=== PATIENT | male | born 1955 | race Caucasian/White ===

== ENCOUNTER 2020-08-01 11:33 | Inpatient (IN) | payer BC, SELFPAY ==
[2020-08-01] MEDS ORDERED: Acetaminophen 325 MG TAB PO PRN (14:12)
[2020-08-01] MEDS ORDERED: Dextrose 50% Abboject 50 ML SYRINGE SLOW IVP PRN (14:12)
[2020-08-01] MEDS ORDERED: Ondansetron PF 4 MG/2 ML Vial IVP PRN (14:12)
[2020-08-01] MEDS ORDERED: Dextrose 5% in Water 1,000 ML IV PRN (14:12)
[2020-08-01] MEDS ORDERED: Ondansetron ODT 4 MG TAB PO PRN (14:12)
[2020-08-01] MEDS ORDERED: HumaLOG 300 UNITS/3 ML VIAL SC PRN ×2 (14:16)
[2020-08-01 14:55] LABS: #Basophils 0.1 thou/uL (0.0-0.2); #Eosinphils 0.3 thou/uL (0.0-0.7); #Monocytes 0.9 thou/uL (0.11-0.59); #Neutrophils 4.4 thou/uL (1.40-6.50); %Eosinophils 4.8 % (0.0-10.0); %Lymphocytes 14.9 % (21.0-51.0); %Monocytes 13.8 % (0.0-10.0); %Neutrophils 65.6 % (42.0-75.0); Hemoglobin 9.1 g/dL (14.0-18.0); Mean Corpuscular HGB CONC 31.3 g/dL (32.0-36.0); Mean Corpuscular Hemoglobin 26.6 pg (27.0-31.0); Mean Platelet Volume 7.3 fL (7.4-10.4); Platelet Count 258 thou/uL (130-400); Red Blood Cell (RBC) Count 3.41 mill/uL (4.70-6.10); White Blood Cell (WBC) Count 6.7 thou/uL (4.8-10.8)
[2020-08-01 15:19] LABS: Magnesium 3.6 mg/dL (1.6-2.6); Phosphorus 6.2 mg/dL (2.3-4.7)
[2020-08-01 15:20] VITALS: BMI 39.8
[2020-08-01] MEDS ORDERED: Epoetin (ESRD) 20,000 UNITS/ML SC SCH (15:45)
[2020-08-01] MEDS ORDERED: EPOETIN ALFA-EPBX (ESRD) 4,000 UNIT/ML VIAL SC SCH (16:00)
[2020-08-01 16:07] LABS: ALT (SGPT) 15 U/L (8-55); AST (SGOT) 17 U/L (5-34); Albumin 3.2 g/dL (3.4-4.8); Alkaline Phosphatase 111 U/L (40-110); Anion Gap 19 mmol/L (10-20); BUN (Urea Nitrogen) 103 mg/dL (8.4-25.7); Bilirubin, Total 0.4 mg/dL (0.2-1.2); Calc. Creatinine Clearance 33 mL/min (70-130); Calcium 8.8 mg/dL (7.8-10.44); Carbon Dioxide 18 mmol/L (23-31); Chloride 106 mmol/L (98-107); Globulin 3.9 g/dL (2.4-3.5); Glucose 89 mg/dL (80-115); Protein, Total 7.1 g/dL (5.8-8.1); Sodium 138 mmol/L (136-145)
[2020-08-01] MEDS: hydrALAZINE 25 MG TAB PO SCH ×2 (16:38→20:40)
[2020-08-01] MEDS: Ferrous Sulfate 325 MG TAB PO SCH (16:39)
[2020-08-01] MEDS: Albumin 25% 25 GM/100 ML BOT IVPB SCH ×2 (16:39→21:01)
[2020-08-01] MEDS: Calcium Carbonate 500 MG ChewTAB PO SCH (16:39)
[2020-08-01] MEDS: Carvedilol 6.25 MG TAB PO SCH (20:40)
[2020-08-01] MEDS: Lantus 1000 UNITS/10 ML VIAL SC SCH (21:23)
[2020-08-02 04:55] LABS: SARS-CoV-2 PCR by NAA Not Detected (NotDetected)
[2020-08-02] MEDS: Albumin 25% 25 GM/100 ML BOT IVPB SCH ×2 (04:57→10:00)
[2020-08-02] MEDS: Levothyroxine 150 MCG TAB PO SCH (05:01)
[2020-08-02 06:08] LABS: #Eosinphils 0.2 thou/uL (0.0-0.7); #Lymphocytes 0.9 thou/uL (1.20-3.40); #Monocytes 0.9 thou/uL (0.11-0.59); #Neutrophils 3.8 thou/uL (1.40-6.50); %Basophils 0.4 % (0.0-1.0); %Eosinophils 3.1 % (0.0-10.0); %Lymphocytes 16.4 % (21.0-51.0); %Monocytes 14.8 % (0.0-10.0); %Neutrophils 65.3 % (42.0-75.0); Hemoglobin 7.9 g/dL (14.0-18.0); Mean Corpuscular HGB CONC 30.9 g/dL (32.0-36.0); Mean Corpuscular Hemoglobin 26.1 pg (27.0-31.0); Mean Corpuscular Volume 84.5 fL (78.0-98.0); Mean Platelet Volume 7.1 fL (7.4-10.4); Platelet Count 235 thou/uL (130-400); RBC Distribution Width 16.8 % (11.5-14.5); Red Blood Cell (RBC) Count 3.02 mill/uL (4.70-6.10); White Blood Cell (WBC) Count 5.8 thou/uL (4.8-10.8)
[2020-08-02 06:29] LABS: Anion Gap 14 mmol/L (10-20); BUN (Urea Nitrogen) 101 mg/dL (8.4-25.7); Calc. Creatinine Clearance 34 mL/min (70-130); Calcium 8.7 mg/dL (7.8-10.44); Carbon Dioxide 24 mmol/L (23-31); Chloride 106 mmol/L (98-107); Glucose 80 mg/dL (80-115); Potassium 4.8 mmol/L (3.5-5.1); Sodium 139 mmol/L (136-145)
[2020-08-02 07:01] LABS: Magnesium 3.6 mg/dL (1.6-2.6); Phosphorus 5.9 mg/dL (2.3-4.7)
[2020-08-02] MEDS: Calcium Carbonate 500 MG ChewTAB PO SCH ×3 (09:57→18:21)
[2020-08-02] MEDS: Aspirin 81 mg Enteric Coated Tablet PO SCH (09:58)
[2020-08-02] MEDS: Cholecalciferol 1,000 UNITS (25 MCG) TAB PO SCH ×2 (09:58→20:04)
[2020-08-02] MEDS: Carvedilol 6.25 MG TAB PO SCH ×2 (09:58→20:09)
[2020-08-02] MEDS: hydrALAZINE 25 MG TAB PO SCH ×3 (09:58→20:09)
[2020-08-02] MEDS: Ferrous Sulfate 325 MG TAB PO SCH ×3 (09:58→18:21)
[2020-08-02] MEDS: Heparin 5,000 UNITS/ML VIAL SC SCH ×3 (09:59→20:04)
[2020-08-02] MEDS: Sodium Chloride 0.9% 1,000 ML IV SCH ×3 (09:59→21:29)
[2020-08-02] MEDS: Lantus 1000 UNITS/10 ML VIAL SC SCH (10:00)
[2020-08-02] MEDS: Sevelamer Carbonate 800 MG TAB PO SCH ×2 (13:05→18:20)
[2020-08-02] MEDS ORDERED: Lantus 1000 UNITS/10 ML VIAL SC SCH (21:00)
[2020-08-03] MEDS: Levothyroxine 150 MCG TAB PO SCH (05:54)
[2020-08-03 06:18] LABS: Phosphorus 5.6 mg/dL (2.3-4.7)
[2020-08-03 06:19] LABS: Anion Gap 14 mmol/L (10-20); BUN (Urea Nitrogen) 99 mg/dL (8.4-25.7); Calc. Creatinine Clearance 35 mL/min (70-130); Calcium 8.6 mg/dL (7.8-10.44); Carbon Dioxide 24 mmol/L (23-31); Chloride 107 mmol/L (98-107); Magnesium 3.6 mg/dL (1.6-2.6); Potassium 4.6 mmol/L (3.5-5.1); Sodium 140 mmol/L (136-145)
[2020-08-03 06:21] LABS: Glucose 36 mg/dL (80-115)
[2020-08-03 06:23] LABS: Eosinophils 4 % (0-10); Hemoglobin 8.6 g/dL (14.0-18.0); Lymphocytes 12 % (21-51); MDiff Complete? YES; Mean Corpuscular HGB CONC 30.4 g/dL (32.0-36.0); Mean Corpuscular Hemoglobin 25.9 pg (27.0-31.0); Mean Corpuscular Volume 85.3 fL (78.0-98.0); Mean Platelet Volume 7.5 fL (7.4-10.4); Monocytes 15 % (0-10); Neutrophil 69 % (42-75); Platelet Count 261 thou/uL (130-400); RBC Distribution Width 17.2 % (11.5-14.5); Red Blood Cell (RBC) Count 3.31 mill/uL (4.70-6.10); White Blood Cell (WBC) Count 6.8 thou/uL (4.8-10.8)
[2020-08-03] MEDS ORDERED: Lantus 1000 UNITS/10 ML VIAL SC SCH ×2 (09:00→10:00)
[2020-08-03] MEDS: Carvedilol 6.25 MG TAB PO SCH ×2 (09:10→20:10)
[2020-08-03] MEDS: hydrALAZINE 25 MG TAB PO SCH ×3 (09:11→20:10)
[2020-08-03] MEDS: Ferrous Sulfate 325 MG TAB PO SCH ×3 (09:11→18:40)
[2020-08-03] MEDS: Aspirin 81 mg Enteric Coated Tablet PO SCH (09:11)
[2020-08-03] MEDS: Cholecalciferol 1,000 UNITS (25 MCG) TAB PO SCH ×2 (09:11→20:11)
[2020-08-03] MEDS: Heparin 5,000 UNITS/ML VIAL SC SCH ×3 (09:12→20:09)
[2020-08-03] MEDS: Sevelamer Carbonate 800 MG TAB PO SCH ×3 (09:13→18:40)
[2020-08-03] MEDS: Calcium Carbonate 500 MG ChewTAB PO SCH ×3 (09:16→18:40)
[2020-08-03] MEDS: Albumin 25% 25 GM/100 ML BOT IVPB SCH ×3 (10:13→20:11)
[2020-08-03] MEDS: Sodium Chloride 0.9% 1,000 ML IV SCH (15:48)
[2020-08-03] MEDS: Lantus 1000 UNITS/10 ML VIAL SC SCH (20:10)
[2020-08-04] MEDS: Albumin 25% 25 GM/100 ML BOT IVPB SCH (03:59)
[2020-08-04] MEDS: Sodium Chloride 0.9% 1,000 ML IV SCH ×3 (04:15→18:09)
[2020-08-04] MEDS ORDERED: Polyethylene Glycol 3350 17 GM Packet PO SCH (04:45)
[2020-08-04] MEDS: Levothyroxine 150 MCG TAB PO SCH (05:20)
[2020-08-04 06:43] LABS: Phosphorus 5.5 mg/dL (2.3-4.7)
[2020-08-04 06:45] LABS: Anion Gap 13 mmol/L (10-20); BUN (Urea Nitrogen) 96 mg/dL (8.4-25.7); Calc. Creatinine Clearance 36 mL/min (70-130); Calcium 8.1 mg/dL (7.8-10.44); Carbon Dioxide 24 mmol/L (23-31); Chloride 108 mmol/L (98-107); Glucose 78 mg/dL (80-115); Magnesium 3.5 mg/dL (1.6-2.6); Potassium 4.7 mmol/L (3.5-5.1); Sodium 140 mmol/L (136-145)
[2020-08-04 06:58] LABS: Band 1 % (5-11); Eosinophils 5 % (0-10); Hemoglobin 7.9 g/dL (14.0-18.0); Lymphocytes 12 % (21-51); MDiff Complete? YES; Mean Corpuscular HGB CONC 30.6 g/dL (32.0-36.0); Mean Corpuscular Hemoglobin 26.3 pg (27.0-31.0); Mean Corpuscular Volume 85.8 fL (78.0-98.0); Mean Platelet Volume 7.3 fL (7.4-10.4); Metamyelocyte 1 % (0-0); Monocytes 14 % (0-10); Neutrophil 67 % (42-75); Platelet Count 213 thou/uL (130-400); Platelet Morphology Comment Appears Adequate; White Blood Cell (WBC) Count 5.5 thou/uL (4.8-10.8)
[2020-08-04] MEDS: Heparin 5,000 UNITS/ML VIAL SC SCH ×3 (08:44→19:56)
[2020-08-04] MEDS: Lantus 1000 UNITS/10 ML VIAL SC SCH ×2 (08:47→21:00)
[2020-08-04] MEDS: hydrALAZINE 25 MG TAB PO SCH ×3 (08:48→19:56)
[2020-08-04] MEDS: Ferrous Sulfate 325 MG TAB PO SCH ×3 (08:48→16:56)
[2020-08-04] MEDS: Calcium Carbonate 500 MG ChewTAB PO SCH ×3 (08:48→16:56)
[2020-08-04] MEDS: Cholecalciferol 1,000 UNITS (25 MCG) TAB PO SCH ×2 (08:49→19:57)
[2020-08-04] MEDS: Aspirin 81 mg Enteric Coated Tablet PO SCH (08:52)
[2020-08-04] MEDS: Sevelamer Carbonate 800 MG TAB PO SCH ×3 (08:52→16:56)
[2020-08-04] MEDS: Carvedilol 25 MG TAB PO SCH ×2 (08:52→16:56)
[2020-08-05 04:57] LABS: Phosphorus 5.5 mg/dL (2.3-4.7)
[2020-08-05 04:59] LABS: Anion Gap 13 mmol/L (10-20); BUN (Urea Nitrogen) 98 mg/dL (8.4-25.7); Calc. Creatinine Clearance 37 mL/min (70-130); Calcium 7.8 mg/dL (7.8-10.44); Carbon Dioxide 21 mmol/L (23-31); Chloride 107 mmol/L (98-107); Glucose 117 mg/dL (80-115); Magnesium 3.4 mg/dL (1.6-2.6); Potassium 4.9 mmol/L (3.5-5.1); Sodium 136 mmol/L (136-145)
[2020-08-05 05:08] LABS: Band 2 % (5-11); Eosinophils 12 % (0-10); Hemoglobin 8.3 g/dL (14.0-18.0); Lymphocytes 21 % (21-51); MDiff Complete? YES; Mean Corpuscular HGB CONC 30.1 g/dL (32.0-36.0); Mean Corpuscular Hemoglobin 25.9 pg (27.0-31.0); Mean Corpuscular Volume 86.2 fL (78.0-98.0); Mean Platelet Volume 7.9 fL (7.4-10.4); Monocytes 11 % (0-10); Neutrophil 54 % (42-75); Platelet Count 225 thou/uL (130-400); Platelet Morphology Comment Appears Adequate; RBC Distribution Width 17.3 % (11.5-14.5); Red Blood Cell (RBC) Count 3.21 mill/uL (4.70-6.10); White Blood Cell (WBC) Count 5.8 thou/uL (4.8-10.8)
[2020-08-05] MEDS: Levothyroxine 150 MCG TAB PO SCH (05:57)
[2020-08-05 08:15] VITALS: BP 169/83; TEMP 98
[2020-08-05] MEDS: Calcium Carbonate 500 MG ChewTAB PO SCH (08:44)
[2020-08-05] MEDS: Carvedilol 25 MG TAB PO SCH (08:44)
[2020-08-05] MEDS: Ferrous Sulfate 325 MG TAB PO SCH (08:44)
[2020-08-05] MEDS: Lantus 1000 UNITS/10 ML VIAL SC SCH (08:45)
[2020-08-05] MEDS: Sevelamer Carbonate 800 MG TAB PO SCH (08:45)
[2020-08-05] MEDS: hydrALAZINE 25 MG TAB PO SCH (08:45)
[2020-08-05] MEDS: Cholecalciferol 1,000 UNITS (25 MCG) TAB PO SCH (08:45)
[2020-08-05] MEDS: Aspirin 81 mg Enteric Coated Tablet PO SCH (08:45)
[2020-08-05] MEDS: Heparin 5,000 UNITS/ML VIAL SC SCH (08:45)
[2020-08-08] MEDS ORDERED: cloNIDine 0.3mg/24 Hour PATCH TD SCH (09:00)
[2020-08-08] MEDS ORDERED: EPOETIN ALFA-EPBX (ESRD) 4,000 UNIT/ML VIAL SC SCH (09:00)
== END 2020-08-05 11:57 | disposition home or self-care (01) | DRG 683 ==
LOC: ONC 12:58
PROVIDERS: ADMIT Family Medicine; ATTEND Family Medicine
DX: N17.9 Acute kidney failure, unspecified (principal); Z68.41 Body mass index [BMI] 40.0-44.9, adult; L97.919 Non-pressure chronic ulcer of unspecified part of right lower leg with unspecified severity; L97.929 Non-pressure chronic ulcer of unspecified part of left lower leg with unspecified severity; E03.9 Hypothyroidism, unspecified; F17.210 Nicotine dependence, cigarettes, uncomplicated; E11.22 Type 2 diabetes mellitus with diabetic chronic kidney disease; I12.9 Hypertensive chronic kidney disease with stage 1 through stage 4 chronic kidney disease, or unspecified chronic kidney disease; E83.39 Other disorders of phosphorus metabolism; E83.41 Hypermagnesemia; D64.9 Anemia, unspecified; E11.649 Type 2 diabetes mellitus with hypoglycemia without coma; N18.2 Chronic kidney disease, stage 2 (mild); I87.2 Venous insufficiency (chronic) (peripheral); E66.01 Morbid (severe) obesity due to excess calories; I83.009 Varicose veins of unspecified lower extremity with ulcer of unspecified site; Z79.82 Long term (current) use of aspirin; Z88.8 Allergy status to other drugs, medicaments and biological substances; Z89.421 Acquired absence of other right toe(s); Z98.41 Cataract extraction status, right eye; Z82.3 Family history of stroke; Z83.3 Family history of diabetes mellitus; Z82.49 Family history of ischemic heart disease and other diseases of the circulatory system
CPT/HCPCS: 36415; 36416; 80048; 80053; 83735; 84100; 84443; 85025; 87635; J1644; J1815; P9047; Q5105; U0003; U0005

== ENCOUNTER 2020-11-29 17:04 | Inpatient (IN) | payer MEDICARE, OTHER ==
[2020-11-29 18:07] LABS: Hemoglobin 12.3 g/dL (14.0-18.0); Mean Corpuscular HGB CONC 30.3 g/dL (32.0-36.0); Mean Corpuscular Volume 86.1 fL (78.0-98.0); Platelet Count 411 thou/uL (130-400); RBC Distribution Width 18.3 % (11.5-14.5); Red Blood Cell (RBC) Count 4.73 mill/uL (4.70-6.10)
[2020-11-29] MEDS ORDERED: Calcium Gluc 4.6 MEQ/10 ML (100 MG/ML) ONE ×2 (18:15→18:34)
[2020-11-29 18:22] LABS: Anisocytosis SLIGHT = 6-15 cells (100X) (0-5/hpf); Band 6 % (5-11); Lymphocytes 2 % (21-51); MDiff Complete? YES; Monocytes 9 % (0-10); Neutrophil 83 % (42-75); Nucleated RBC 3 % (0); Ovalocytes SLIGHT = 2-5 cells (100X) (0-1/hpf); Platelet Morphology Comment Appears Increased; Polychromasia SLIGHT = 2-3 cells (100X) (0-2/hpf); White Blood Cell (WBC) Count 18.9 thou/uL (4.8-10.8)
[2020-11-29 18:29] LABS: ALT (SGPT) 19 U/L (8-55); AST (SGOT) 12 U/L (5-34); Alkaline Phosphatase 140 U/L (40-110); Bilirubin, Total 0.5 mg/dL (0.2-1.2); Calc. Creatinine Clearance 0 mL/min (70-130); Calcium 7.9 mg/dL (7.8-10.44); Chloride 111 mmol/L (98-107); Globulin 3.4 g/dL (2.4-3.5); Glucose 131 mg/dL (80-115); Lipase 69 U/L (8-78); Magnesium 4.5 mg/dL (1.6-2.6); Protein, Total 6.4 g/dL (5.8-8.1); Sodium 136 mmol/L (136-145)
[2020-11-29 18:32] LABS: Carbon Dioxide Less than 8 mmol/L (23-31); Potassium 8.7 mmol/L (3.5-5.1)
[2020-11-29] MEDS ORDERED: Albuterol Sulfate 2.5 mg/3 ml Neb ONE ×3 (18:32→19:11)
[2020-11-29] MEDS ORDERED: Insulin Regular 300 UNITS/3 ML VIAL ONE (18:34)
[2020-11-29] MEDS ORDERED: Dextrose 50% Abboject 50 ML SYRINGE ONE ×2 (18:34→18:35)
[2020-11-29 18:40] LABS: BUN (Urea Nitrogen) 170 mg/dL (8.4-25.7)
[2020-11-29] MEDS ORDERED: Sodium Bicarb 50 MEQ/50 ML Abboject 8.4% SYRINGE ONE ×2 (18:55→19:40)
[2020-11-29] MEDS ORDERED: LOKELMA 10 GM PACKET PO SCH (19:15)
[2020-11-29] MEDS ORDERED: Furosemide 20 MG/2 ML VIAL ONE (19:18)
[2020-11-29] MEDS ORDERED: Furosemide 100 MG/10 ML VIAL ONE (19:18)
[2020-11-29] MEDS ORDERED: Midazolam HCl 2 mg/2 ml Vial ONE (19:19)
[2020-11-29] MEDS ORDERED: Acetaminophen 325 MG TAB PO PRN (19:42)
[2020-11-29] MEDS ORDERED: Ondansetron PF 4 MG/2 ML Vial IVP PRN (19:42)
[2020-11-29] MEDS ORDERED: Dextrose 50% Abboject 50 ML SYRINGE SLOW IVP PRN (19:45)
[2020-11-29] MEDS ORDERED: Dextrose 5% in Water 1,000 ML IV PRN (19:45)
[2020-11-29] MEDS: Heparin 5,000 UNITS/ML VIAL SC SCH (21:50)
[2020-11-29 23:35] LABS: SARS-CoV-2 NAA Rapid Test Not Detected (NotDetected)
[2020-11-29] MEDS ORDERED: VANCOMYCIN 1.25 GM/250 ML BAG 1.25 GM in Premix Bag 1 BAG IVPB SCH (23:45)
[2020-11-29] MEDS ORDERED: HOLD VANCOMYCIN FOR LEVEL >20 FS SCH (23:45)
[2020-11-29] MEDS ORDERED: Vancomycin HCl 500 MG in Sodium Chloride 0.9% 100 ML IVPB SCH (23:45)
[2020-11-29] MEDS ORDERED: Vancomycin HCl 750 MG in Sodium Chloride 0.9% 250 ML 250 ML IVPB SCH (23:45)
[2020-11-29] MEDS ORDERED: Cefepime 1 GM in Sodium Chloride 0.9% 100 ML IVPB SCH (23:45)
[2020-11-29] MEDS ORDERED: Vancomycin Sliding Scale 1 EACH FS ONE (23:45)
[2020-11-29] MEDS ORDERED: Vancomycin 1 GM in Premix Bag 1 BAG IVPB SCH (23:45)
[2020-11-29] MEDS ORDERED: VANCOMYCIN 1.75 GM/350 ML BAG 1.75 GM in Premix Bag 1 BAG IVPB SCH (23:59)
[2020-11-30] MEDS ORDERED: Cefepime 1 GM VIAL ONE (00:06)
[2020-11-30 00:54] LABS: HBSAg Index 0.16 S/CO (0-0.99); Hep B Surf Ag Non-Reactive S/CO (NonReactive)
[2020-11-30 01:26] LABS: Anion Gap 26 mmol/L (10-20); BUN (Urea Nitrogen) 123 mg/dL (8.4-25.7); Calc. Creatinine Clearance 7 mL/min (70-130); Calcium 8.2 mg/dL (7.8-10.44); Carbon Dioxide 12 mmol/L (23-31); Chloride 106 mmol/L (98-107); Glucose 87 mg/dL (80-115); Potassium 5.8 mmol/L (3.5-5.1); Sodium 138 mmol/L (136-145)
[2020-11-30] MEDS ORDERED: Dextrose 50% Abboject 50 ML SYRINGE SLOW IVP PRN (02:08)
[2020-11-30] MEDS ORDERED: Calcium Gluc 4.6 MEQ/10 ML (100 MG/ML) SLOW IVP SCH (02:08)
[2020-11-30] MEDS ORDERED: Insulin Regular 300 UNITS/3 ML VIAL IVP SCH (02:15)
[2020-11-30] MEDS ORDERED: Insulin Regular 300 UNITS/3 ML VIAL ONE (02:25)
[2020-11-30] MEDS ORDERED: Dextrose 50% Abboject 50 ML SYRINGE ONE (02:25)
[2020-11-30] MEDS ORDERED: Calcium Gluc 4.6 MEQ/10 ML (100 MG/ML) ONE (02:25)
[2020-11-30 04:37] LABS: Anion Gap 24 mmol/L (10-20); BUN (Urea Nitrogen) 124 mg/dL (8.4-25.7); Calc. Creatinine Clearance 6 mL/min (70-130); Calcium 8.3 mg/dL (7.8-10.44); Carbon Dioxide 13 mmol/L (23-31); Chloride 106 mmol/L (98-107); Glucose 144 mg/dL (80-115); Magnesium 3.7 mg/dL (1.6-2.6); Potassium 6.2 mmol/L (3.5-5.1); Sodium 137 mmol/L (136-145)
[2020-11-30 04:55] LABS: Anisocytosis SLIGHT = 6-15 cells (100X) (0-5/hpf); Band 4 % (5-11); Lymphocytes 5 % (21-51); MDiff Complete? YES; Mean Corpuscular HGB CONC 32.6 g/dL (32.0-36.0); Mean Corpuscular Hemoglobin 27.6 pg (27.0-31.0); Mean Corpuscular Volume 84.8 fL (78.0-98.0); Mean Platelet Volume 7.4 fL (7.4-10.4); Monocytes 8 % (0-10); Neutrophil 81 % (42-75); Nucleated RBC 2 % (0); Ovalocytes SLIGHT = 2-5 cells (100X) (0-1/hpf); Platelet Count 339 thou/uL (130-400); Platelet Morphology Comment Appears Adequate; Polychromasia SLIGHT = 2-3 cells (100X) (0-2/hpf); RBC Distribution Width 17.8 % (11.5-14.5); Reactive Lymphocytes 2 % (0-10); Red Blood Cell (RBC) Count 4.33 mill/uL (4.70-6.10); Schistocytes SLIGHT = 2-5 cells (100X) (0-1/hpf)
[2020-11-30] MEDS ORDERED: Tuberculin PPD 0.1 ML VIAL I-DERMAL SCH (07:45)
[2020-11-30] MEDS: Heparin 5,000 UNITS/ML VIAL SC SCH ×2 (08:10→21:40)
[2020-11-30 09:34] LABS: Anion Gap 21 mmol/L (10-20); BUN (Urea Nitrogen) 107 mg/dL (8.4-25.7); Calc. Creatinine Clearance 7 mL/min (70-130); Calcium 8.1 mg/dL (7.8-10.44); Carbon Dioxide 17 mmol/L (23-31); Chloride 106 mmol/L (98-107); Glucose 183 mg/dL (80-115); Potassium 6.1 mmol/L (3.5-5.1); Sodium 138 mmol/L (136-145); Vancomycin, Random 20.4 ug/mL (See Comment)
[2020-11-30 09:53] LABS: HBSAB Concentration Less than 8.00 mIU/mL; HBSAg Index 0.21 S/CO (0-0.99); Hep B Core Total Ab Non-Reactive (NonReactive); Hep B Core Total Index 0.08 S/CO (0-0.79); Hep B Surf AB Non-Reactive (NonReactive); Hep B Surf Ag Non-Reactive S/CO (NonReactive); Hep C IgG Ab Non-Reactive (NonReactive); Hep C Index 0.06 S/CO (0-0.79)
[2020-11-30] MEDS: Famotidine 20 MG TAB PO SCH (10:03)
[2020-11-30 10:04] LABS: Band 10 % (5-11); Hemoglobin 11.4 g/dL (14.0-18.0); Lymphocytes 8 % (21-51); MDiff Complete? YES; Mean Corpuscular HGB CONC 31.2 g/dL (32.0-36.0); Mean Corpuscular Hemoglobin 26.6 pg (27.0-31.0); Mean Corpuscular Volume 85.1 fL (78.0-98.0); Mean Platelet Volume 6.9 fL (7.4-10.4); Monocytes 7 % (0-10); Neutrophil 75 % (42-75); Nucleated RBC 2 % (0); Ovalocytes SLIGHT = 2-5 cells (100X) (0-1/hpf); Platelet Count 376 thou/uL (130-400); Platelet Morphology Comment Appears Adequate; Polychromasia MODERATE = 3-4 cells (100X) (0-2/hpf); RBC Distribution Width 18.1 % (11.5-14.5); Red Blood Cell (RBC) Count 4.29 mill/uL (4.70-6.10); White Blood Cell (WBC) Count 17.2 thou/uL (4.8-10.8)
[2020-11-30] MEDS ORDERED: hydrALAZINE 20 MG/ML VIAL SLOW IVP PRN (16:18)
[2020-11-30] MEDS: Sevelamer Carbonate 800 MG TAB PO SCH (16:52)
[2020-11-30] MEDS: Ferrous Sulfate 325 MG TAB PO SCH (16:52)
[2020-11-30 17:53] LABS: Anion Gap 21 mmol/L (10-20); BUN (Urea Nitrogen) 79 mg/dL (8.4-25.7); Calc. Creatinine Clearance 8 mL/min (70-130); Carbon Dioxide 20 mmol/L (23-31); Chloride 105 mmol/L (98-107); Glucose 121 mg/dL (80-115); Potassium 5.4 mmol/L (3.5-5.1); Sodium 141 mmol/L (136-145)
[2020-11-30] MEDS: Cefepime 0.5 GM, Admixture Fee 1 EACH in Sodium Chloride 0.9% 100 ML IVPB SCH (21:36)
[2020-11-30] MEDS ORDERED: Cefepime 1 GM in Sodium Chloride 0.9% 100 ML IVPB SCH (21:45)
[2020-12-01 05:21] LABS: Hemoglobin 10.7 g/dL (14.0-18.0); Mean Corpuscular HGB CONC 30.8 g/dL (32.0-36.0); Mean Corpuscular Hemoglobin 26.6 pg (27.0-31.0); Mean Corpuscular Volume 86.2 fL (78.0-98.0); Mean Platelet Volume 7.5 fL (7.4-10.4); Platelet Count 309 thou/uL (130-400); RBC Distribution Width 17.7 % (11.5-14.5); Red Blood Cell (RBC) Count 4.01 mill/uL (4.70-6.10); White Blood Cell (WBC) Count 11.6 thou/uL (4.8-10.8)
[2020-12-01 05:38] LABS: Anion Gap 22 mmol/L (10-20); BUN (Urea Nitrogen) 89 mg/dL (8.4-25.7); Calc. Creatinine Clearance 8 mL/min (70-130); Calcium 7.9 mg/dL (7.8-10.44); Carbon Dioxide 17 mmol/L (23-31); Chloride 105 mmol/L (98-107); Glucose 105 mg/dL (80-115); Magnesium 3.3 mg/dL (1.6-2.6); Potassium 5.9 mmol/L (3.5-5.1); Sodium 138 mmol/L (136-145)
[2020-12-01 06:28] LABS: Band 13 % (5-11); Lymphocytes 9 % (21-51); MDiff Complete? YES; Monocytes 7 % (0-10); Neutrophil 71 % (42-75)
[2020-12-01] MEDS: Heparin 5,000 UNITS/ML VIAL SC SCH ×4 (07:26→21:58)
[2020-12-01] MEDS: Ferrous Sulfate 325 MG TAB PO SCH ×3 (07:27→17:23)
[2020-12-01] MEDS: Aspirin 81 mg Enteric Coated Tablet PO SCH (07:27)
[2020-12-01] MEDS: Famotidine 20 MG TAB PO SCH (07:27)
[2020-12-01] MEDS: Levothyroxine 150 MCG TAB PO SCH (07:28)
[2020-12-01] MEDS ORDERED: CEFAZOLIN 2 GM in Premix Bag 1 BAG IVPB SCH (07:45)
[2020-12-01 08:07] LABS: Vancomycin, Random 15.8 ug/mL (See Comment)
[2020-12-01] MEDS ORDERED: Heparin 10,000 UNITS/ 10 ML VIAL ONE (09:18)
[2020-12-01] MEDS: Sevelamer Carbonate 800 MG TAB PO SCH ×3 (09:52→17:23)
[2020-12-01] MEDS: HumaLOG 300 UNITS/3 ML VIAL SC PRN (17:06)
[2020-12-01] MEDS: Cefepime 0.5 GM, Admixture Fee 1 EACH in Sodium Chloride 0.9% 100 ML IVPB SCH (17:21)
[2020-12-01] MEDS ORDERED: Amiodarone 150 MG in Dextrose 5% in Water 100 ML IVPB SCH (20:00)
[2020-12-01 21:49] LABS: ALT (SGPT) 14 U/L (8-55); AST (SGOT) 12 U/L (5-34); Albumin 2.3 g/dL (3.4-4.8); Alkaline Phosphatase 111 U/L (40-110); Bilirubin, Direct 0.2 mg/dL (0.1-0.3); Bilirubin, Total 0.4 mg/dL (0.2-1.2); Protein, Total 5.7 g/dL (5.8-8.1)
[2020-12-01] MEDS: Carvedilol 6.25 MG TAB PO SCH (21:59)
[2020-12-01] MEDS: Amiodarone 450 MG in Dextrose 5% in Water 250 ML IVPB SCH (22:21)
[2020-12-02 04:47] LABS: Mean Corpuscular HGB CONC 31.1 g/dL (32.0-36.0); Mean Corpuscular Hemoglobin 27.2 pg (27.0-31.0); Mean Corpuscular Volume 87.6 fL (78.0-98.0); Mean Platelet Volume 7.5 fL (7.4-10.4); Platelet Count 254 thou/uL (130-400); RBC Distribution Width 17.5 % (11.5-14.5); Red Blood Cell (RBC) Count 3.68 mill/uL (4.70-6.10); White Blood Cell (WBC) Count 6.9 thou/uL (4.8-10.8)
[2020-12-02 04:57] LABS: Phosphorus 6.7 mg/dL (2.3-4.7)
[2020-12-02 05:00] LABS: Anion Gap 13 mmol/L (10-20); BUN (Urea Nitrogen) 52 mg/dL (8.4-25.7); Calc. Creatinine Clearance 11 mL/min (70-130); Calcium 7.4 mg/dL (7.8-10.44); Carbon Dioxide 27 mmol/L (23-31); Chloride 100 mmol/L (98-107); Glucose 192 mg/dL (80-115); Magnesium 2.5 mg/dL (1.6-2.6); Potassium 4.5 mmol/L (3.5-5.1); Sodium 135 mmol/L (136-145)
[2020-12-02] MEDS: HumaLOG 300 UNITS/3 ML VIAL SC PRN ×4 (06:00→21:43)
[2020-12-02 06:01] LABS: Band 18 % (5-11); Lymphocytes 9 % (21-51); MDiff Complete? YES; Monocytes 14 % (0-10); Neutrophil 57 % (42-75); Platelet Morphology Comment Appears Adequate; Polychromasia SLIGHT = 2-3 cells (100X) (0-2/hpf); Reactive Lymphocytes 2 % (0-10)
[2020-12-02] MEDS: Heparin 5,000 UNITS/ML VIAL SC SCH ×3 (08:24→20:46)
[2020-12-02] MEDS: Famotidine 20 MG TAB PO SCH (08:24)
[2020-12-02] MEDS: Ferrous Sulfate 325 MG TAB PO SCH ×3 (08:24→20:48)
[2020-12-02] MEDS: Aspirin 81 mg Enteric Coated Tablet PO SCH (08:24)
[2020-12-02] MEDS: Carvedilol 6.25 MG TAB PO SCH ×2 (08:24→20:48)
[2020-12-02] MEDS: Sevelamer Carbonate 800 MG TAB PO SCH ×3 (08:24→17:29)
[2020-12-02] MEDS: Levothyroxine 150 MCG TAB PO SCH (08:24)
[2020-12-02] MEDS ORDERED: Heparin 10,000 UNITS/ 10 ML VIAL ONE (09:21)
[2020-12-02] MEDS ORDERED: Carvedilol 6.25 MG TAB PO SCH (12:15)
[2020-12-02] MEDS ORDERED: Ferrous Sulfate 325 MG TAB PO SCH (17:00)
[2020-12-02] MEDS ORDERED: Cefepime 0.5 GM in Sodium Chloride 0.9% 100 ML IVPB SCH (17:00)
[2020-12-02] MEDS: Senokot S 8.6-50 MG TAB PO SCH (20:47)
[2020-12-02] MEDS: Cefepime 0.5 GM in Sodium Chloride 0.9% 100 ML IVPB SCH (21:07)
[2020-12-02] MEDS: Amiodarone 450 MG in Dextrose 5% in Water 250 ML IVPB SCH (21:45)
[2020-12-03 04:24] LABS: Anion Gap 11 mmol/L (10-20); BUN (Urea Nitrogen) 31 mg/dL (8.4-25.7); Calc. Creatinine Clearance 17 mL/min (70-130); Calcium 7.3 mg/dL (7.8-10.44); Carbon Dioxide 29 mmol/L (23-31); Chloride 96 mmol/L (98-107); Glucose 226 mg/dL (80-115); Potassium 3.7 mmol/L (3.5-5.1); Sodium 132 mmol/L (136-145)
[2020-12-03 04:54] LABS: Band 12 % (5-11); Eosinophils 3 % (0-10); Hemoglobin 9.9 g/dL (14.0-18.0); Lymphocytes 2 % (21-51); MDiff Complete? YES; Mean Corpuscular HGB CONC 30.7 g/dL (32.0-36.0); Mean Corpuscular Hemoglobin 27.2 pg (27.0-31.0); Mean Corpuscular Volume 88.5 fL (78.0-98.0); Mean Platelet Volume 7.4 fL (7.4-10.4); Monocytes 12 % (0-10); Neutrophil 71 % (42-75); Platelet Count 228 thou/uL (130-400); RBC Distribution Width 16.9 % (11.5-14.5); Red Blood Cell (RBC) Count 3.65 mill/uL (4.70-6.10); White Blood Cell (WBC) Count 7.9 thou/uL (4.8-10.8)
[2020-12-03] MEDS: HumaLOG 300 UNITS/3 ML VIAL SC PRN ×4 (06:40→16:53)
[2020-12-03] MEDS: Dronedarone HCl 400 MG TAB PO SCH ×2 (08:54→16:51)
[2020-12-03] MEDS: Aspirin 81 mg Enteric Coated Tablet PO SCH (08:55)
[2020-12-03] MEDS: Ferrous Sulfate 325 MG TAB PO SCH ×3 (08:55→20:50)
[2020-12-03] MEDS: Senokot S 8.6-50 MG TAB PO SCH ×2 (08:55→20:50)
[2020-12-03] MEDS: Carvedilol 6.25 MG TAB PO SCH ×2 (08:55→23:20)
[2020-12-03] MEDS: Calcitriol 0.25 MCG CAP PO SCH (08:55)
[2020-12-03] MEDS: Levothyroxine 150 MCG TAB PO SCH (08:55)
[2020-12-03] MEDS: Sevelamer Carbonate 800 MG TAB PO SCH ×3 (08:55→16:52)
[2020-12-03] MEDS: Heparin 5,000 UNITS/ML VIAL SC SCH ×3 (08:56→20:54)
[2020-12-03] MEDS ORDERED: cloNIDine 0.3mg/24 Hour PATCH TD SCH (12:00)
[2020-12-03] MEDS: EPOETIN ALFA-EPBX (ESRD) 4,000 UNIT/ML VIAL SC SCH (13:11)
[2020-12-03] MEDS: Lantus 1000 UNITS/10 ML VIAL SC SCH ×2 (13:12→13:13)
[2020-12-03] MEDS: hydrALAZINE 25 MG TAB PO SCH ×2 (15:21→23:20)
[2020-12-03] MEDS: Cefepime 0.5 GM in Sodium Chloride 0.9% 100 ML IVPB SCH (20:49)
[2020-12-04 04:59] LABS: Hemoglobin 10.2 g/dL (14.0-18.0); Mean Corpuscular HGB CONC 30.9 g/dL (32.0-36.0); Mean Corpuscular Hemoglobin 27.3 pg (27.0-31.0); Mean Corpuscular Volume 88.2 fL (78.0-98.0); Mean Platelet Volume 7.6 fL (7.4-10.4); Platelet Count 244 thou/uL (130-400); Red Blood Cell (RBC) Count 3.73 mill/uL (4.70-6.10); White Blood Cell (WBC) Count 7.6 thou/uL (4.8-10.8)
[2020-12-04 05:06] LABS: Anion Gap 14 mmol/L (10-20); BUN (Urea Nitrogen) 46 mg/dL (8.4-25.7); Calc. Creatinine Clearance 18 mL/min (70-130); Calcium 7.6 mg/dL (7.8-10.44); Carbon Dioxide 25 mmol/L (23-31); Chloride 95 mmol/L (98-107); Glucose 213 mg/dL (80-115); Sodium 130 mmol/L (136-145)
[2020-12-04 05:25] LABS: Band 4 % (5-11); Eosinophils 8 % (0-10); Lymphocytes 10 % (21-51); MDiff Complete? YES; Monocytes 10 % (0-10); Neutrophil 68 % (42-75)
[2020-12-04] MEDS: Lantus 1000 UNITS/10 ML VIAL SC SCH (08:57)
[2020-12-04] MEDS: Aspirin 81 mg Enteric Coated Tablet PO SCH (08:57)
[2020-12-04] MEDS: Sevelamer Carbonate 800 MG TAB PO SCH ×3 (08:57→17:40)
[2020-12-04] MEDS: Levothyroxine 150 MCG TAB PO SCH (09:03)
[2020-12-04] MEDS: Carvedilol 6.25 MG TAB PO SCH ×2 (11:07→20:46)
[2020-12-04] MEDS: hydrALAZINE 25 MG TAB PO SCH ×3 (12:11→20:49)
[2020-12-04] MEDS ORDERED: Heparin 5,000 UNITS/ML VIAL ONE (12:14)
[2020-12-04] MEDS ORDERED: Ioversol 68 % 50 ML VIAL ONE (12:14)
[2020-12-04] MEDS ORDERED: Heparin 10,000 UNITS/ 10 ML VIAL ONE (12:14)
[2020-12-04] MEDS ORDERED: Lidocaine 1% w/Epinephrine 1:100K 20 ML VIAL ONE (12:14)
[2020-12-04] MEDS ORDERED: Protamine Sulfate 50 MG/5 ML VIAL ONE (12:14)
[2020-12-04] MEDS ORDERED: Sodium Chloride 0.9% 20 ML ONE (12:14)
[2020-12-04] MEDS ORDERED: Bupivacaine PF 0.5% 30 ML VIAL ONE (12:14)
[2020-12-04] MEDS ORDERED: Fentanyl 100 MCG/2 ML VIAL ONE (12:26)
[2020-12-04] MEDS ORDERED: Phenylephrine 10 MG/ML VIAL ONE ×2 (12:32)
[2020-12-04] MEDS ORDERED: Albumin 5% 250 ML ONE (12:33)
[2020-12-04] MEDS ORDERED: Rocuronium Bromide 10 MG/ML (10ML VIAL) ONE (12:49)
[2020-12-04] MEDS ORDERED: Glycopyrrolate 0.2 MG/ML 5 ML SYRINGE ONE (12:49)
[2020-12-04] MEDS ORDERED: Lidocaine 1% PF 5 ML VIAL ONE (12:49)
[2020-12-04] MEDS ORDERED: PROPOFOL 200 MG/20 ML VIAL ONE (12:49)
[2020-12-04] MEDS ORDERED: Ondansetron PF 4 MG/2 ML Vial ONE (12:49)
[2020-12-04] MEDS ORDERED: EPINEPHrine 1 MG/10 ML Abboject SYRINGE ONE (12:49)
[2020-12-04] MEDS ORDERED: ePHEDrine 50 MG/ML VIAL ONE (12:49)
[2020-12-04] MEDS ORDERED: traMADol HCl 50 MG TAB PO PRN (13:06)
[2020-12-04] MEDS: Ferrous Sulfate 325 MG TAB PO SCH ×3 (13:38→20:58)
[2020-12-04] MEDS: Dronedarone HCl 400 MG TAB PO SCH (13:38)
[2020-12-04] MEDS ORDERED: Sodium Chloride 0.9% 1,000 ML IV SCH (15:00)
[2020-12-04] MEDS ORDERED: Calcium Chloride 1 GM/10 ML Abboject SYRINGE ONE (15:46)
[2020-12-04] MEDS ORDERED: Amiodarone 450 MG in Dextrose 5% in Water 250 ML IVPB SCH (16:45)
[2020-12-04 17:11] LABS: #Eosinphils 0.3 thou/uL (0.0-0.7); #Lymphocytes 0.8 thou/uL (1.20-3.40); #Monocytes 1.4 thou/uL (0.11-0.59); #Neutrophils 8.1 thou/uL (1.40-6.50); %Basophils 0.2 % (0.0-1.0); %Eosinophils 2.6 % (0.0-10.0); %Lymphocytes 7.2 % (21.0-51.0); %Neutrophils 77.1 % (42.0-75.0); Hemoglobin 10.9 g/dL (14.0-18.0); Mean Corpuscular Hemoglobin 25.9 pg (27.0-31.0); White Blood Cell (WBC) Count 10.6 thou/uL (4.8-10.8)
[2020-12-04] MEDS ORDERED: Phenylephrine 40 MG/NS 250 ML 40 MG in Premix Bag 1 BAG IVPB SCH (17:15)
[2020-12-04 17:29] LABS: Hypochromia SLIGHT = 6-15 cells (100X) (0-5/hpf); MDiff Complete? YES; Mean Corpuscular HGB CONC 29.4 g/dL (32.0-36.0); Mean Platelet Volume 7.5 fL (7.4-10.4); Platelet Count 301 thou/uL (130-400); Platelet Morphology Comment Appears Adequate; RBC Distribution Width 17.4 % (11.5-14.5)
[2020-12-04 17:32] LABS: Anion Gap 15 mmol/L (10-20); BUN (Urea Nitrogen) 49 mg/dL (8.4-25.7); Calc. Creatinine Clearance 17 mL/min (70-130); Calcium 8.4 mg/dL (7.8-10.44); Carbon Dioxide 24 mmol/L (23-31); Chloride 97 mmol/L (98-107); Glucose 190 mg/dL (80-115); Magnesium 2.5 mg/dL (1.6-2.6); Potassium 4.5 mmol/L (3.5-5.1); Sodium 131 mmol/L (136-145)
[2020-12-04] MEDS: Calcitriol 0.25 MCG CAP PO SCH (17:37)
[2020-12-04] MEDS: Senokot S 8.6-50 MG TAB PO SCH ×2 (17:38→20:58)
[2020-12-04 17:51] LABS: CKMB 3.6 ng/mL (0-6.6)
[2020-12-04] MEDS: Lactated Ringer's 1,000 ML IV SCH (20:45)
[2020-12-04] MEDS: Cefepime 0.5 GM in Sodium Chloride 0.9% 100 ML IVPB SCH (20:58)
[2020-12-05 04:15] LABS: #Lymphocytes 0.8 thou/uL (1.20-3.40); #Neutrophils 5.8 thou/uL (1.40-6.50); %Basophils 0.4 % (0.0-1.0); %Eosinophils 0.6 % (0.0-10.0); %Lymphocytes 10.6 % (21.0-51.0); %Monocytes 13.3 % (0.0-10.0); %Neutrophils 75.1 % (42.0-75.0); Mean Corpuscular HGB CONC 30.3 g/dL (32.0-36.0); Mean Corpuscular Hemoglobin 26.5 pg (27.0-31.0); Mean Corpuscular Volume 87.6 fL (78.0-98.0); Mean Platelet Volume 7.6 fL (7.4-10.4); Platelet Count 255 thou/uL (130-400); RBC Distribution Width 17.1 % (11.5-14.5); Red Blood Cell (RBC) Count 3.78 mill/uL (4.70-6.10); White Blood Cell (WBC) Count 7.8 thou/uL (4.8-10.8)
[2020-12-05 04:32] LABS: Anion Gap 16 mmol/L (10-20); BUN (Urea Nitrogen) 54 mg/dL (8.4-25.7); Calc. Creatinine Clearance 15 mL/min (70-130); Carbon Dioxide 22 mmol/L (23-31); Chloride 97 mmol/L (98-107); Glucose 152 mg/dL (80-115); Sodium 130 mmol/L (136-145)
[2020-12-05 04:57] LABS: CKMB 6.6 ng/mL (0-6.6)
[2020-12-05] MEDS: Levothyroxine 150 MCG TAB PO SCH (05:38)
[2020-12-05] MEDS: Ferrous Sulfate 325 MG TAB PO SCH ×3 (08:00→20:30)
[2020-12-05] MEDS: Sevelamer Carbonate 800 MG TAB PO SCH ×3 (08:00→18:02)
[2020-12-05] MEDS: Calcitriol 0.25 MCG CAP PO SCH (15:02)
[2020-12-05] MEDS: hydrALAZINE 25 MG TAB PO SCH ×3 (15:02→20:24)
[2020-12-05] MEDS: Aspirin 81 mg Enteric Coated Tablet PO SCH (15:02)
[2020-12-05] MEDS: Senokot S 8.6-50 MG TAB PO SCH ×2 (15:03→20:29)
[2020-12-05] MEDS: Lantus 1000 UNITS/10 ML VIAL SC SCH (15:03)
[2020-12-05] MEDS: Carvedilol 6.25 MG TAB PO SCH ×2 (15:03→20:30)
[2020-12-05] MEDS: Lactated Ringer's 1,000 ML IV SCH (18:02)
[2020-12-05] MEDS ORDERED: Cefepime 0.5 GM, Admixture Fee 1 EACH in Sodium Chloride 0.9% 100 ML IVPB SCH (21:00)
[2020-12-06] MEDS: Levothyroxine 150 MCG TAB PO SCH (05:44)
[2020-12-06 06:27] LABS: Cardiac Risk 3.1 (Less than 4.5)
[2020-12-06 06:35] LABS: Critical Call Chem Troponin I RESULT DECREASING; Troponin I 0.519 ng/mL (< 0.028)
[2020-12-06 06:54] LABS: Hemoglobin 10.2 g/dL (14.0-18.0); Mean Corpuscular HGB CONC 30.2 g/dL (32.0-36.0); Mean Corpuscular Hemoglobin 26.7 pg (27.0-31.0); Mean Corpuscular Volume 88.4 fL (78.0-98.0); Mean Platelet Volume 7.8 fL (7.4-10.4); Platelet Count 254 thou/uL (130-400); Red Blood Cell (RBC) Count 3.84 mill/uL (4.70-6.10); White Blood Cell (WBC) Count 8.1 thou/uL (4.8-10.8)
[2020-12-06 06:59] LABS: Anion Gap 12 mmol/L (10-20); BUN (Urea Nitrogen) 27 mg/dL (8.4-25.7); Calc. Creatinine Clearance 23 mL/min (70-130); Calcium 7.6 mg/dL (7.8-10.44); Carbon Dioxide 27 mmol/L (23-31); Chloride 99 mmol/L (98-107); Glucose 129 mg/dL (80-115); Potassium 4.3 mmol/L (3.5-5.1); Sodium 134 mmol/L (136-145)
[2020-12-06 08:27] LABS: Eosinophils 1 % (0-10); Lymphocytes 10 % (21-51); MDiff Complete? YES; Monocytes 12 % (0-10); Neutrophil 76 % (42-75); Platelet Morphology Comment Appears Adequate; RBC Morphology Normal
[2020-12-06] MEDS: Carvedilol 6.25 MG TAB PO SCH ×2 (09:09→21:58)
[2020-12-06] MEDS: hydrALAZINE 25 MG TAB PO SCH ×3 (09:10→22:15)
[2020-12-06] MEDS: Calcitriol 0.25 MCG CAP PO SCH (09:10)
[2020-12-06] MEDS: Aspirin 81 mg Enteric Coated Tablet PO SCH (09:10)
[2020-12-06] MEDS: Sevelamer Carbonate 800 MG TAB PO SCH ×3 (09:10→17:56)
[2020-12-06] MEDS: Senokot S 8.6-50 MG TAB PO SCH ×2 (09:10→22:00)
[2020-12-06] MEDS: Ferrous Sulfate 325 MG TAB PO SCH ×5 (09:10→22:01)
[2020-12-06] MEDS: Lantus 1000 UNITS/10 ML VIAL SC SCH (09:39)
[2020-12-06] MEDS: HumaLOG 300 UNITS/3 ML VIAL SC PRN ×2 (12:24→22:34)
[2020-12-06] MEDS: Lactated Ringer's 1,000 ML IV SCH (12:25)
[2020-12-06] MEDS ORDERED: Communication Order-Pharmacy FS SCH (17:30)
[2020-12-06] MEDS: Cephalexin 250 MG CAP PO SCH (22:11)
[2020-12-07 05:19] LABS: Mean Corpuscular HGB CONC 29.3 g/dL (32.0-36.0); Mean Corpuscular Hemoglobin 26.2 pg (27.0-31.0); Mean Corpuscular Volume 89.5 fL (78.0-98.0); Mean Platelet Volume 7.8 fL (7.4-10.4); Platelet Count 283 thou/uL (130-400); RBC Distribution Width 16.8 % (11.5-14.5); Red Blood Cell (RBC) Count 3.83 mill/uL (4.70-6.10); White Blood Cell (WBC) Count 9.5 thou/uL (4.8-10.8)
[2020-12-07 05:30] LABS: Anion Gap 15 mmol/L (10-20); BUN (Urea Nitrogen) 41 mg/dL (8.4-25.7); Calc. Creatinine Clearance 18 mL/min (70-130); Calcium 7.8 mg/dL (7.8-10.44); Carbon Dioxide 25 mmol/L (23-31); Chloride 96 mmol/L (98-107); Glucose 195 mg/dL (80-115); Potassium 4.4 mmol/L (3.5-5.1); Sodium 132 mmol/L (136-145)
[2020-12-07] MEDS: Levothyroxine 150 MCG TAB PO SCH (06:37)
[2020-12-07 06:38] LABS: Band 10 % (5-11); Eosinophils 2 % (0-10); Lymphocytes 12 % (21-51); MDiff Complete? YES; Monocytes 1 % (0-10); Neutrophil 75 % (42-75)
[2020-12-07] MEDS ORDERED: Lidocaine 1% (PF) 30 ML VIAL ONE (07:46)
[2020-12-07] MEDS ORDERED: Heparin 10,000 UNITS/ 10 ML VIAL ONE ×2 (08:10→09:13)
[2020-12-07] MEDS ORDERED: Fentanyl 100 MCG/2 ML VIAL ONE (08:10)
[2020-12-07] MEDS ORDERED: Midazolam HCl 2 mg/2 ml Vial ONE (08:10)
[2020-12-07] MEDS ORDERED: Nitroglycerin 100MG/250ML BOT 250 ML ONE (08:35)
[2020-12-07] MEDS ORDERED: Protamine Sulfate 50 MG/5 ML VIAL ONE (08:43)
[2020-12-07] MEDS ORDERED: Iopamidol 370 76% 100 ML VIAL ONE (08:50)
[2020-12-07] MEDS ORDERED: Iopamidol 370 76% 50 ML VIAL FS ONE (08:50)
[2020-12-07] MEDS ORDERED: Amiodarone 200 MG TAB PO SCH (09:00)
[2020-12-07] MEDS ORDERED: Nitroglycerin 0.4 MG TAB (25 Tab Bottle) SL PRN (09:08)
[2020-12-07] MEDS ORDERED: Sodium Chloride 0.9% 200 ML IV PRN (09:08)
[2020-12-07] MEDS ORDERED: Acetaminophen/Codeine 30-300mg Tablet PO PRN ×2 (09:08)
[2020-12-07] MEDS: Sevelamer Carbonate 800 MG TAB PO SCH ×3 (09:34→15:30)
[2020-12-07] MEDS: Carvedilol 6.25 MG TAB PO SCH ×2 (09:37→21:30)
[2020-12-07] MEDS: Aspirin 81 mg Enteric Coated Tablet PO SCH (09:37)
[2020-12-07] MEDS: Amiodarone 200 MG TAB PO SCH ×3 (09:37→21:30)
[2020-12-07] MEDS: Calcitriol 0.25 MCG CAP PO SCH (09:37)
[2020-12-07] MEDS: hydrALAZINE 25 MG TAB PO SCH ×3 (09:38→21:30)
[2020-12-07] MEDS: Lantus 1000 UNITS/10 ML VIAL SC SCH (09:38)
[2020-12-07] MEDS: Senokot S 8.6-50 MG TAB PO SCH ×2 (09:38→21:30)
[2020-12-07] MEDS: Cephalexin 250 MG CAP PO SCH ×2 (09:38→21:30)
[2020-12-07] MEDS: Simvastatin 10 MG TAB PO SCH (21:30)
[2020-12-07] MEDS: Ferrous Sulfate 325 MG TAB PO SCH (21:30)
[2020-12-08] MEDS: Levothyroxine 150 MCG TAB PO SCH (05:53)
[2020-12-08] MEDS: Lantus 1000 UNITS/10 ML VIAL SC SCH (09:56)
[2020-12-08] MEDS: Sevelamer Carbonate 800 MG TAB PO SCH ×3 (10:01→16:24)
[2020-12-08] MEDS: Cephalexin 250 MG CAP PO SCH ×2 (10:01→21:04)
[2020-12-08] MEDS: Ferrous Sulfate 325 MG TAB PO SCH ×3 (10:01→21:04)
[2020-12-08] MEDS: Aspirin 81 mg Enteric Coated Tablet PO SCH (10:01)
[2020-12-08] MEDS: Calcitriol 0.25 MCG CAP PO SCH (10:01)
[2020-12-08] MEDS: Senokot S 8.6-50 MG TAB PO SCH ×2 (10:02→21:04)
[2020-12-08] MEDS: Carvedilol 6.25 MG TAB PO SCH ×2 (10:07→21:04)
[2020-12-08] MEDS: hydrALAZINE 25 MG TAB PO SCH ×3 (10:07→21:05)
[2020-12-08] MEDS: Amiodarone 200 MG TAB PO SCH ×3 (10:07→21:04)
[2020-12-08] MEDS: HumaLOG 300 UNITS/3 ML VIAL SC PRN ×2 (11:52→16:33)
[2020-12-08 12:56] LABS: Anion Gap 11 mmol/L (10-20); BUN (Urea Nitrogen) 28 mg/dL (8.4-25.7); Calc. Creatinine Clearance 24 mL/min (70-130); Calcium 7.9 mg/dL (7.8-10.44); Carbon Dioxide 29 mmol/L (23-31); Chloride 98 mmol/L (98-107); Glucose 203 mg/dL (80-115); Potassium 4.3 mmol/L (3.5-5.1); Sodium 134 mmol/L (136-145)
[2020-12-08] MEDS: Polyethylene Glycol 3350 17 GM Packet PO PRN (16:26)
[2020-12-08] MEDS: Simvastatin 10 MG TAB PO SCH (21:04)
[2020-12-09] MEDS: HumaLOG 300 UNITS/3 ML VIAL SC PRN (06:16)
[2020-12-09] MEDS: Levothyroxine 150 MCG TAB PO SCH (06:16)
[2020-12-09 07:22] LABS: Hemoglobin 10.5 g/dL (14.0-18.0); Mean Corpuscular HGB CONC 29.4 g/dL (32.0-36.0); Mean Corpuscular Hemoglobin 26.2 pg (27.0-31.0); Mean Corpuscular Volume 89.3 fL (78.0-98.0); Mean Platelet Volume 7.6 fL (7.4-10.4); Platelet Count 303 thou/uL (130-400); White Blood Cell (WBC) Count 9.2 thou/uL (4.8-10.8)
[2020-12-09] MEDS: Amiodarone 200 MG TAB PO SCH ×3 (08:11→20:52)
[2020-12-09 08:45] LABS: Band 2 % (5-11); Eosinophils 2 % (0-10); Hypochromia SLIGHT = 6-15 cells (100X) (0-5/hpf); Lymphocytes 4 % (21-51); MDiff Complete? YES; Monocytes 14 % (0-10); Neutrophil 77 % (42-75); Platelet Morphology Comment Appears Adequate; Vacuoles SLIGHT
[2020-12-09] MEDS: Sevelamer Carbonate 800 MG TAB PO SCH ×3 (08:45→17:25)
[2020-12-09] MEDS ORDERED: Heparin 10,000 UNITS/ 10 ML VIAL ONE (09:14)
[2020-12-09] MEDS: hydrALAZINE 25 MG TAB PO SCH ×3 (12:46→21:01)
[2020-12-09] MEDS: Aspirin 81 mg Enteric Coated Tablet PO SCH (13:32)
[2020-12-09] MEDS: Apixaban 5 MG TAB PO SCH ×2 (13:32→20:52)
[2020-12-09] MEDS: Ferrous Sulfate 325 MG TAB PO SCH ×3 (13:32→20:52)
[2020-12-09] MEDS: Cephalexin 250 MG CAP PO SCH (13:33)
[2020-12-09] MEDS: Carvedilol 6.25 MG TAB PO SCH ×2 (13:33→21:00)
[2020-12-09] MEDS: Calcitriol 0.25 MCG CAP PO SCH (13:33)
[2020-12-09] MEDS: Senokot S 8.6-50 MG TAB PO SCH ×2 (13:34→20:52)
[2020-12-09] MEDS: Lantus 1000 UNITS/10 ML VIAL SC SCH (13:44)
[2020-12-09] MEDS: Polyethylene Glycol 3350 17 GM Packet PO PRN (17:25)
[2020-12-09] MEDS ORDERED: cloNIDine 0.1mg/24 Hour PATCH TD SCH (20:00)
[2020-12-09] MEDS: Simvastatin 10 MG TAB PO SCH (20:52)
[2020-12-10 04:56] LABS: Anion Gap 13 mmol/L (10-20); BUN (Urea Nitrogen) 32 mg/dL (8.4-25.7); Band 5 % (5-11); Calc. Creatinine Clearance 26 mL/min (70-130); Carbon Dioxide 27 mmol/L (23-31); Chloride 96 mmol/L (98-107); Eosinophils 4 % (0-10); Glucose 196 mg/dL (80-115); Hemoglobin 9.6 g/dL (14.0-18.0); Lymphocytes 7 % (21-51); MDiff Complete? YES; Mean Corpuscular HGB CONC 28.8 g/dL (32.0-36.0); Mean Corpuscular Hemoglobin 25.9 pg (27.0-31.0); Mean Corpuscular Volume 89.9 fL (78.0-98.0); Mean Platelet Volume 7.6 fL (7.4-10.4); Monocytes 15 % (0-10); Neutrophil 69 % (42-75); Platelet Count 283 thou/uL (130-400); Platelet Morphology Comment Appears Adequate; Potassium 4.2 mmol/L (3.5-5.1); Red Blood Cell (RBC) Count 3.72 mill/uL (4.70-6.10); Sodium 132 mmol/L (136-145); White Blood Cell (WBC) Count 7.5 thou/uL (4.8-10.8)
[2020-12-10] MEDS: Levothyroxine 150 MCG TAB PO SCH (05:59)
[2020-12-10] MEDS: HumaLOG 300 UNITS/3 ML VIAL SC PRN ×3 (06:15→17:34)
[2020-12-10] MEDS: Aspirin 81 mg Enteric Coated Tablet PO SCH (08:34)
[2020-12-10] MEDS: Lantus 1000 UNITS/10 ML VIAL SC SCH (08:34)
[2020-12-10] MEDS: Ferrous Sulfate 325 MG TAB PO SCH ×3 (08:34→20:44)
[2020-12-10] MEDS: Sevelamer Carbonate 800 MG TAB PO SCH ×3 (08:34→17:33)
[2020-12-10] MEDS: Apixaban 5 MG TAB PO SCH ×2 (08:34→20:44)
[2020-12-10] MEDS: Senokot S 8.6-50 MG TAB PO SCH ×2 (08:34→20:44)
[2020-12-10] MEDS: Calcitriol 0.25 MCG CAP PO SCH (08:34)
[2020-12-10] MEDS: Isosorbide Mononitrate 20 MG TAB PO SCH ×2 (08:43→20:44)
[2020-12-10] MEDS: Amiodarone 200 MG TAB PO SCH ×2 (08:43→20:44)
[2020-12-10] MEDS: Carvedilol 6.25 MG TAB PO SCH ×2 (08:43→21:40)
[2020-12-10] MEDS: hydrALAZINE 25 MG TAB PO SCH ×2 (08:43→20:44)
[2020-12-10] MEDS: EPOETIN ALFA-EPBX (ESRD) 4,000 UNIT/ML VIAL SC SCH (11:57)
[2020-12-10] MEDS: Simvastatin 10 MG TAB PO SCH (20:44)
[2020-12-11 05:16] LABS: Anion Gap 13 mmol/L (10-20); BUN (Urea Nitrogen) 41 mg/dL (8.4-25.7); Calc. Creatinine Clearance 20 mL/min (70-130); Carbon Dioxide 26 mmol/L (23-31); Chloride 95 mmol/L (98-107); Potassium 4.3 mmol/L (3.5-5.1); Sodium 130 mmol/L (136-145)
[2020-12-11 05:17] LABS: Glucose 135 mg/dL (80-115)
[2020-12-11] MEDS: Levothyroxine 150 MCG TAB PO SCH (05:28)
[2020-12-11 05:38] LABS: Mean Corpuscular HGB CONC 29.3 g/dL (32.0-36.0); Mean Corpuscular Hemoglobin 26.2 pg (27.0-31.0); Mean Corpuscular Volume 89.4 fL (78.0-98.0); Mean Platelet Volume 7.4 fL (7.4-10.4); Platelet Count 333 thou/uL (130-400); RBC Distribution Width 16.9 % (11.5-14.5); Red Blood Cell (RBC) Count 3.83 mill/uL (4.70-6.10); White Blood Cell (WBC) Count 7.8 thou/uL (4.8-10.8)
[2020-12-11 05:39] LABS: Band 2 % (5-11); Eosinophils 2 % (0-10); Hypochromia SLIGHT = 6-15 cells (100X) (0-5/hpf); Lymphocytes 7 % (21-51); MDiff Complete? YES; Metamyelocyte 1 % (0-0); Monocytes 15 % (0-10); Myelocyte 1 % (0-0); Neutrophil 72 % (42-75); Platelet Morphology Comment Appears Adequate; Polychromasia SLIGHT = 2-3 cells (100X) (0-2/hpf); Schistocytes SLIGHT = 2-5 cells (100X) (0-1/hpf)
[2020-12-11] MEDS: Sevelamer Carbonate 800 MG TAB PO SCH ×4 (08:24→17:11)
[2020-12-11] MEDS: Amiodarone 200 MG TAB PO SCH ×2 (08:24→22:12)
[2020-12-11] MEDS: Ferrous Sulfate 325 MG TAB PO SCH ×3 (08:24→23:22)
[2020-12-11] MEDS: Apixaban 5 MG TAB PO SCH ×2 (08:25→22:20)
[2020-12-11] MEDS: Senokot S 8.6-50 MG TAB PO SCH ×2 (08:25→22:15)
[2020-12-11] MEDS: Calcitriol 0.25 MCG CAP PO SCH (08:25)
[2020-12-11] MEDS: Aspirin 81 mg Enteric Coated Tablet PO SCH (08:25)
[2020-12-11] MEDS: hydrALAZINE 25 MG TAB PO SCH ×2 (08:26→22:12)
[2020-12-11] MEDS: Carvedilol 6.25 MG TAB PO SCH ×2 (08:26→22:12)
[2020-12-11] MEDS: Isosorbide Mononitrate 20 MG TAB PO SCH ×2 (08:26→22:13)
[2020-12-11] MEDS: Lantus 1000 UNITS/10 ML VIAL SC SCH (08:27)
[2020-12-11] MEDS: HumaLOG 300 UNITS/3 ML VIAL SC PRN (11:32)
[2020-12-11] MEDS ORDERED: Bisacodyl 10 MG SUPP PR PRN (15:26)
[2020-12-11] MEDS: Simvastatin 10 MG TAB PO SCH (22:24)
[2020-12-12 04:55] LABS: #Lymphocytes 1.3 thou/uL (1.20-3.40); #Monocytes 1.4 thou/uL (0.11-0.59); #Neutrophils 9.3 thou/uL (1.40-6.50); %Basophils 0.4 % (0.0-1.0); %Eosinophils 0.1 % (0.0-10.0); %Lymphocytes 10.5 % (21.0-51.0); %Monocytes 11.4 % (0.0-10.0); %Neutrophils 77.7 % (42.0-75.0); Hemoglobin 10.2 g/dL (14.0-18.0); Mean Corpuscular Hemoglobin 26.8 pg (27.0-31.0); Mean Corpuscular Volume 89.4 fL (78.0-98.0); Mean Platelet Volume 7.8 fL (7.4-10.4); Platelet Count 326 thou/uL (130-400); RBC Distribution Width 17.2 % (11.5-14.5); Red Blood Cell (RBC) Count 3.82 mill/uL (4.70-6.10); White Blood Cell (WBC) Count 11.9 thou/uL (4.8-10.8)
[2020-12-12] MEDS: Levothyroxine 150 MCG TAB PO SCH (05:35)
[2020-12-12] MEDS: HumaLOG 300 UNITS/3 ML VIAL SC PRN (05:36)
[2020-12-12 05:44] LABS: Anion Gap 18 mmol/L (10-20); BUN (Urea Nitrogen) 51 mg/dL (8.4-25.7); Calc. Creatinine Clearance 17 mL/min (70-130); Carbon Dioxide 22 mmol/L (23-31); Chloride 95 mmol/L (98-107); Glucose 180 mg/dL (80-115); Magnesium 2.5 mg/dL (1.6-2.6); Potassium 5.1 mmol/L (3.5-5.1); Sodium 130 mmol/L (136-145)
[2020-12-12] MEDS ORDERED: Sodium Chloride 0.9% 250 ML IV SCH (06:15)
[2020-12-12] MEDS ORDERED: Heparin 10,000 UNITS/ 10 ML VIAL ONE (09:12)
[2020-12-12] MEDS: Sevelamer Carbonate 800 MG TAB PO SCH ×3 (13:32→17:48)
[2020-12-12] MEDS: Amiodarone 200 MG TAB PO SCH (14:33)
[2020-12-12] MEDS: Apixaban 5 MG TAB PO SCH ×2 (14:33→21:26)
[2020-12-12] MEDS: Senokot S 8.6-50 MG TAB PO SCH ×2 (14:33→21:26)
[2020-12-12] MEDS: Aspirin 81 mg Enteric Coated Tablet PO SCH (14:33)
[2020-12-12] MEDS: Calcitriol 0.25 MCG CAP PO SCH (14:34)
[2020-12-12] MEDS: Ferrous Sulfate 325 MG TAB PO SCH ×3 (14:34→21:25)
[2020-12-12] MEDS: hydrALAZINE 25 MG TAB PO SCH (14:35)
[2020-12-12] MEDS: Lantus 1000 UNITS/10 ML VIAL SC SCH (14:35)
[2020-12-12] MEDS: Isosorbide Mononitrate 20 MG TAB PO SCH (14:36)
[2020-12-12] MEDS: Carvedilol 6.25 MG TAB PO SCH ×2 (14:37→17:48)
[2020-12-12] MEDS ORDERED: Midodrine HCl 5 MG TAB PO SCH ×2 (17:15→21:58)
[2020-12-12] MEDS: Simvastatin 10 MG TAB PO SCH (21:26)
[2020-12-13] MEDS: Isosorbide Mononitrate 20 MG TAB PO SCH (01:01)
[2020-12-13] MEDS: Amiodarone 200 MG TAB PO SCH (01:01)
[2020-12-13] MEDS: hydrALAZINE 25 MG TAB PO SCH (01:01)
[2020-12-13] MEDS ORDERED: Sodium Chloride 0.9% 250 ML IV SCH (01:15)
[2020-12-13 04:40] LABS: #Eosinphils 0.1 thou/uL (0.0-0.7); #Monocytes 1.1 thou/uL (0.11-0.59); #Neutrophils 7.6 thou/uL (1.40-6.50); %Basophils 0.1 % (0.0-1.0); %Eosinophils 1.2 % (0.0-10.0); %Lymphocytes 10.5 % (21.0-51.0); %Monocytes 11.1 % (0.0-10.0); %Neutrophils 77.1 % (42.0-75.0); Hemoglobin 10.6 g/dL (14.0-18.0); Mean Corpuscular HGB CONC 28.2 g/dL (32.0-36.0); Mean Corpuscular Hemoglobin 25.5 pg (27.0-31.0); Mean Corpuscular Volume 90.4 fL (78.0-98.0); Mean Platelet Volume 7.7 fL (7.4-10.4); Platelet Count 364 thou/uL (130-400); RBC Distribution Width 17.1 % (11.5-14.5); Red Blood Cell (RBC) Count 4.16 mill/uL (4.70-6.10); White Blood Cell (WBC) Count 9.9 thou/uL (4.8-10.8)
[2020-12-13 04:50] LABS: Anion Gap 11 mmol/L (10-20); BUN (Urea Nitrogen) 28 mg/dL (8.4-25.7); Calc. Creatinine Clearance 25 mL/min (70-130); Calcium 8.1 mg/dL (7.8-10.44); Carbon Dioxide 32 mmol/L (23-31); Chloride 97 mmol/L (98-107); Glucose 83 mg/dL (80-115); Potassium 4.6 mmol/L (3.5-5.1); Sodium 135 mmol/L (136-145)
[2020-12-13] MEDS: Levothyroxine 150 MCG TAB PO SCH (05:46)
[2020-12-13] MEDS ORDERED: Cosyntropin 250 MCG VIAL SLOW IVP SCH (08:45)
[2020-12-13] MEDS ORDERED: Midodrine HCl 5 MG TAB PO SCH (09:00)
[2020-12-13] MEDS ORDERED: Amiodarone 200 MG TAB PO SCH (09:00)
[2020-12-13] MEDS: Sevelamer Carbonate 800 MG TAB PO SCH ×3 (09:58→17:10)
[2020-12-13] MEDS: Ferrous Sulfate 325 MG TAB PO SCH ×2 (09:58→17:18)
[2020-12-13] MEDS: Senokot S 8.6-50 MG TAB PO SCH ×2 (09:59→21:26)
[2020-12-13] MEDS: Midodrine HCl 5 MG TAB PO SCH ×3 (09:59→21:26)
[2020-12-13] MEDS: Aspirin 81 mg Enteric Coated Tablet PO SCH (09:59)
[2020-12-13] MEDS: Calcitriol 0.25 MCG CAP PO SCH (09:59)
[2020-12-13] MEDS: Lantus 1000 UNITS/10 ML VIAL SC SCH (10:00)
[2020-12-13] MEDS: Apixaban 5 MG TAB PO SCH ×2 (10:00→21:25)
[2020-12-13] MEDS: Sodium Chloride 0.9% 1,000 ML IV SCH ×2 (10:13→21:25)
[2020-12-13] MEDS: Carvedilol 6.25 MG TAB PO SCH (10:17)
[2020-12-13] MEDS: HumaLOG 300 UNITS/3 ML VIAL SC PRN (17:10)
[2020-12-13] MEDS: Simvastatin 10 MG TAB PO SCH (21:26)
[2020-12-14] MEDS: Sodium Chloride 0.9% 1,000 ML IV SCH ×2 (05:15→16:53)
[2020-12-14 05:24] LABS: #Lymphocytes 1.1 thou/uL (1.20-3.40); #Monocytes 1.4 thou/uL (0.11-0.59); #Neutrophils 9.1 thou/uL (1.40-6.50); %Eosinophils 0.2 % (0.0-10.0); %Monocytes 12.4 % (0.0-10.0); %Neutrophils 78.4 % (42.0-75.0); Hemoglobin 10.5 g/dL (14.0-18.0); Mean Corpuscular HGB CONC 29.8 g/dL (32.0-36.0); Mean Corpuscular Hemoglobin 26.2 pg (27.0-31.0); Mean Corpuscular Volume 87.8 fL (78.0-98.0); Mean Platelet Volume 7.3 fL (7.4-10.4); Platelet Count 411 thou/uL (130-400); RBC Distribution Width 17.5 % (11.5-14.5); White Blood Cell (WBC) Count 11.6 thou/uL (4.8-10.8)
[2020-12-14] MEDS: Levothyroxine 150 MCG TAB PO SCH (05:26)
[2020-12-14] MEDS: HumaLOG 300 UNITS/3 ML VIAL SC PRN (05:42)
[2020-12-14 05:49] LABS: ALT (SGPT) 717 U/L (8-55); AST (SGOT) 310 U/L (5-34); Albumin 2.5 g/dL (3.4-4.8); Alkaline Phosphatase 182 U/L (40-110); Anion Gap 15 mmol/L (10-20); BUN (Urea Nitrogen) 41 mg/dL (8.4-25.7); Bilirubin, Total 0.4 mg/dL (0.2-1.2); Calc. Creatinine Clearance 22 mL/min (70-130); Carbon Dioxide 24 mmol/L (23-31); Chloride 95 mmol/L (98-107); Globulin 3.5 g/dL (2.4-3.5); Glucose 212 mg/dL (80-115); Magnesium 2.4 mg/dL (1.6-2.6); Potassium 4.4 mmol/L (3.5-5.1); Sodium 130 mmol/L (136-145)
[2020-12-14] MEDS: Midodrine HCl 5 MG TAB PO SCH ×3 (08:08→20:54)
[2020-12-14] MEDS ORDERED: Albumin 25% 25 GM/100 ML BOT IVPB SCH (08:23)
[2020-12-14] MEDS ORDERED: Heparin 10,000 UNITS/ 10 ML VIAL ONE (09:16)
[2020-12-14] MEDS: Sevelamer Carbonate 800 MG TAB PO SCH ×3 (12:47→16:42)
[2020-12-14] MEDS: Aspirin 81 mg Enteric Coated Tablet PO SCH (12:47)
[2020-12-14] MEDS: Ferrous Sulfate 325 MG TAB PO SCH ×2 (12:48→16:43)
[2020-12-14] MEDS: Calcitriol 0.25 MCG CAP PO SCH (12:48)
[2020-12-14] MEDS: Apixaban 5 MG TAB PO SCH ×2 (12:48→20:54)
[2020-12-14] MEDS: Lantus 1000 UNITS/10 ML VIAL SC SCH (12:49)
[2020-12-14] MEDS: Senokot S 8.6-50 MG TAB PO SCH ×2 (12:53→20:55)
[2020-12-14] MEDS ORDERED: Midodrine HCl 5 MG TAB PO SCH (17:00)
[2020-12-14] MEDS: Polyethylene Glycol 3350 17 GM Packet PO PRN (18:09)
[2020-12-14 20:23] LABS: Lactic Acid 2.4 mmol/L (0.5-2.2)
[2020-12-14] MEDS: Simvastatin 10 MG TAB PO SCH (20:55)
[2020-12-15] MEDS: Sodium Chloride 0.9% 1,000 ML IV SCH (04:00)
[2020-12-15 04:57] LABS: Hemoglobin 10.5 g/dL (14.0-18.0); Mean Corpuscular HGB CONC 29.5 g/dL (32.0-36.0); Mean Corpuscular Hemoglobin 26.4 pg (27.0-31.0); Mean Corpuscular Volume 89.5 fL (78.0-98.0); Mean Platelet Volume 6.9 fL (7.4-10.4); Platelet Count 389 thou/uL (130-400); RBC Distribution Width 17.7 % (11.5-14.5); Red Blood Cell (RBC) Count 3.98 mill/uL (4.70-6.10); White Blood Cell (WBC) Count 9.7 thou/uL (4.8-10.8)
[2020-12-15] MEDS: Levothyroxine 150 MCG TAB PO SCH (05:08)
[2020-12-15 05:16] LABS: ALT (SGPT) 571 U/L (8-55); AST (SGOT) 246 U/L (5-34); Albumin 2.6 g/dL (3.4-4.8); Alkaline Phosphatase 222 U/L (40-110); Anion Gap 13 mmol/L (10-20); BUN (Urea Nitrogen) 35 mg/dL (8.4-25.7); Bilirubin, Total 0.4 mg/dL (0.2-1.2); Calc. Creatinine Clearance 27 mL/min (70-130); Calcium 7.8 mg/dL (7.8-10.44); Carbon Dioxide 24 mmol/L (23-31); Chloride 98 mmol/L (98-107); Globulin 3.2 g/dL (2.4-3.5); Glucose 110 mg/dL (80-115); Potassium 4.2 mmol/L (3.5-5.1); Protein, Total 5.8 g/dL (5.8-8.1); Sodium 131 mmol/L (136-145)
[2020-12-15 05:20] LABS: Anisocytosis MODERATE=16-30 cells (100X) (0-5/hpf); Band 1 % (5-11); Eosinophils 1 % (0-10); Hypochromia SLIGHT = 6-15 cells (100X) (0-5/hpf); Lymphocytes 9 % (21-51); MDiff Complete? YES; Monocytes 8 % (0-10); Neutrophil 80 % (42-75); Ovalocytes SLIGHT = 2-5 cells (100X) (0-1/hpf); Platelet Morphology Comment Appears Adequate; Polychromasia SLIGHT = 2-3 cells (100X) (0-2/hpf)
[2020-12-15] MEDS: Ferrous Sulfate 325 MG TAB PO SCH ×2 (09:45→17:16)
[2020-12-15] MEDS: Apixaban 5 MG TAB PO SCH ×2 (09:46→22:01)
[2020-12-15] MEDS: Polyethylene Glycol 3350 17 GM Packet PO PRN (09:46)
[2020-12-15] MEDS: Senokot S 8.6-50 MG TAB PO SCH ×2 (09:46→22:00)
[2020-12-15] MEDS: Aspirin 81 mg Enteric Coated Tablet PO SCH (09:46)
[2020-12-15] MEDS: Calcitriol 0.25 MCG CAP PO SCH (09:46)
[2020-12-15] MEDS: Sevelamer Carbonate 800 MG TAB PO SCH ×3 (09:46→19:11)
[2020-12-15] MEDS: Midodrine HCl 5 MG TAB PO SCH ×3 (09:50→22:01)
[2020-12-15] MEDS: Lantus 1000 UNITS/10 ML VIAL SC SCH (09:53)
[2020-12-15] MEDS ORDERED: Nystatin Powder 15 GM BOT TOP PRN (17:19)
[2020-12-15] MEDS: Simvastatin 10 MG TAB PO SCH (22:02)
[2020-12-16] MEDS: Levothyroxine 150 MCG TAB PO SCH (05:19)
[2020-12-16 05:39] LABS: Hemoglobin 10.9 g/dL (14.0-18.0); Mean Corpuscular HGB CONC 29.5 g/dL (32.0-36.0); Mean Corpuscular Hemoglobin 26.2 pg (27.0-31.0); Mean Corpuscular Volume 88.6 fL (78.0-98.0); Mean Platelet Volume 7.2 fL (7.4-10.4); Platelet Count 365 thou/uL (130-400); RBC Distribution Width 18.2 % (11.5-14.5); Red Blood Cell (RBC) Count 4.17 mill/uL (4.70-6.10); White Blood Cell (WBC) Count 9.7 thou/uL (4.8-10.8)
[2020-12-16 05:55] LABS: ALT (SGPT) 436 U/L (8-55); AST (SGOT) 115 U/L (5-34); Albumin 2.8 g/dL (3.4-4.8); Alkaline Phosphatase 246 U/L (40-110); Anion Gap 15 mmol/L (10-20); BUN (Urea Nitrogen) 44 mg/dL (8.4-25.7); Bilirubin, Direct 0.3 mg/dL (0.1-0.3); Bilirubin, Total 0.5 mg/dL (0.2-1.2); Calc. Creatinine Clearance 22 mL/min (70-130); Carbon Dioxide 25 mmol/L (23-31); Chloride 94 mmol/L (98-107); Globulin 3.3 g/dL (2.4-3.5); Glucose 147 mg/dL (80-115); Potassium 4.3 mmol/L (3.5-5.1); Protein, Total 6.1 g/dL (5.8-8.1); Sodium 130 mmol/L (136-145)
[2020-12-16 07:06] LABS: Band 3 % (5-11); Eosinophils 2 % (0-10); Lymphocytes 8 % (21-51); MDiff Complete? YES; Monocytes 18 % (0-10); Neutrophil 69 % (42-75)
[2020-12-16] MEDS: Sodium Chloride 0.9% 1,000 ML IV SCH (07:29)
[2020-12-16] MEDS: Midodrine HCl 5 MG TAB PO SCH ×3 (08:26→21:52)
[2020-12-16] MEDS: Sevelamer Carbonate 800 MG TAB PO SCH ×3 (09:25→18:25)
[2020-12-16] MEDS: Ferrous Sulfate 325 MG TAB PO SCH ×2 (09:25→17:50)
[2020-12-16] MEDS ORDERED: Heparin 10,000 UNITS/ 10 ML VIAL ONE (09:27)
[2020-12-16] MEDS: Senokot S 8.6-50 MG TAB PO SCH ×2 (10:18→21:52)
[2020-12-16] MEDS: Apixaban 5 MG TAB PO SCH ×2 (10:18→21:52)
[2020-12-16] MEDS: Lantus 1000 UNITS/10 ML VIAL SC SCH (13:14)
[2020-12-16] MEDS: Aspirin 81 mg Enteric Coated Tablet PO SCH (13:17)
[2020-12-16] MEDS: Calcitriol 0.25 MCG CAP PO SCH (13:17)
[2020-12-16] MEDS: Simvastatin 10 MG TAB PO SCH (21:52)
[2020-12-17 05:03] LABS: Mean Corpuscular HGB CONC 29.7 g/dL (32.0-36.0); Mean Corpuscular Hemoglobin 26.6 pg (27.0-31.0); Mean Corpuscular Volume 89.6 fL (78.0-98.0); Mean Platelet Volume 7.2 fL (7.4-10.4); Platelet Count 356 thou/uL (130-400); RBC Distribution Width 18.5 % (11.5-14.5); Red Blood Cell (RBC) Count 4.15 mill/uL (4.70-6.10); White Blood Cell (WBC) Count 8.6 thou/uL (4.8-10.8)
[2020-12-17 05:14] LABS: ALT (SGPT) 318 U/L (8-55); AST (SGOT) 74 U/L (5-34); Albumin 2.7 g/dL (3.4-4.8); Alkaline Phosphatase 259 U/L (40-110); Anion Gap 14 mmol/L (10-20); BUN (Urea Nitrogen) 32 mg/dL (8.4-25.7); Bilirubin, Total 0.5 mg/dL (0.2-1.2); Calc. Creatinine Clearance 27 mL/min (70-130); Calcium 8.1 mg/dL (7.8-10.44); Carbon Dioxide 22 mmol/L (23-31); Chloride 95 mmol/L (98-107); Globulin 3.4 g/dL (2.4-3.5); Glucose 170 mg/dL (80-115); Magnesium 2.2 mg/dL (1.6-2.6); Protein, Total 6.1 g/dL (5.8-8.1); Sodium 127 mmol/L (136-145)
[2020-12-17 05:31] LABS: Band 15 % (5-11); Eosinophils 3 % (0-10); Lymphocytes 5 % (21-51); MDiff Complete? YES; Metamyelocyte 1 % (0-0); Monocytes 14 % (0-10); Neutrophil 57 % (42-75); Nucleated RBC 2 % (0); Platelet Morphology Comment Appears Adequate; Polychromasia MODERATE = 3-4 cells (100X) (0-2/hpf); Reactive Lymphocytes 4 % (0-10)
[2020-12-17] MEDS: Levothyroxine 150 MCG TAB PO SCH (06:20)
[2020-12-17] MEDS: HumaLOG 300 UNITS/3 ML VIAL SC PRN (06:21)
[2020-12-17] MEDS: Ferrous Sulfate 325 MG TAB PO SCH ×2 (08:45→17:30)
[2020-12-17] MEDS: Senokot S 8.6-50 MG TAB PO SCH ×2 (08:45→21:58)
[2020-12-17] MEDS: Calcitriol 0.25 MCG CAP PO SCH (08:45)
[2020-12-17] MEDS: Sevelamer Carbonate 800 MG TAB PO SCH ×3 (08:45→17:30)
[2020-12-17] MEDS: Apixaban 5 MG TAB PO SCH ×2 (08:45→21:59)
[2020-12-17] MEDS: Midodrine HCl 5 MG TAB PO SCH ×3 (08:46→21:59)
[2020-12-17] MEDS: Lantus 1000 UNITS/10 ML VIAL SC SCH (08:46)
[2020-12-17] MEDS: Aspirin 81 mg Enteric Coated Tablet PO SCH (08:46)
[2020-12-17] MEDS: EPOETIN ALFA-EPBX (ESRD) 4,000 UNIT/ML VIAL SC SCH (11:43)
[2020-12-17] MEDS: Simvastatin 10 MG TAB PO SCH (21:59)
[2020-12-18] MEDS: Levothyroxine 150 MCG TAB PO SCH (05:00)
[2020-12-18] MEDS: Senokot S 8.6-50 MG TAB PO SCH ×2 (09:03→20:53)
[2020-12-18] MEDS: Calcitriol 0.25 MCG CAP PO SCH (09:03)
[2020-12-18] MEDS: Midodrine HCl 5 MG TAB PO SCH ×3 (09:04→20:51)
[2020-12-18] MEDS: Aspirin 81 mg Enteric Coated Tablet PO SCH (09:04)
[2020-12-18] MEDS: Ferrous Sulfate 325 MG TAB PO SCH ×2 (09:04→17:20)
[2020-12-18] MEDS: Sevelamer Carbonate 800 MG TAB PO SCH ×3 (09:04→18:06)
[2020-12-18] MEDS: Apixaban 5 MG TAB PO SCH ×2 (09:04→20:53)
[2020-12-18] MEDS: Lantus 1000 UNITS/10 ML VIAL SC SCH (09:05)
[2020-12-18 11:44] VITALS: BMI 36.0
[2020-12-18] MEDS ORDERED: Polyethylene Glycol 3350 17 GM Packet PO SCH (11:45)
[2020-12-18] MEDS: Simvastatin 10 MG TAB PO SCH (20:53)
[2020-12-19 04:56] LABS: Hemoglobin 10.9 g/dL (14.0-18.0); Mean Corpuscular Hemoglobin 26.3 pg (27.0-31.0); Mean Corpuscular Volume 87.5 fL (78.0-98.0); Platelet Count 332 thou/uL (130-400); Red Blood Cell (RBC) Count 4.14 mill/uL (4.70-6.10); White Blood Cell (WBC) Count 8.8 thou/uL (4.8-10.8)
[2020-12-19 05:14] LABS: Anion Gap 14 mmol/L (10-20); BUN (Urea Nitrogen) 43 mg/dL (8.4-25.7); Calc. Creatinine Clearance 20 mL/min (70-130); Calcium 8.3 mg/dL (7.8-10.44); Carbon Dioxide 26 mmol/L (23-31); Chloride 90 mmol/L (98-107); Glucose 135 mg/dL (80-115); Potassium 4.4 mmol/L (3.5-5.1); Sodium 126 mmol/L (136-145)
[2020-12-19] MEDS: Levothyroxine 150 MCG TAB PO SCH (05:17)
[2020-12-19 05:42] LABS: Anisocytosis SLIGHT = 6-15 cells (100X) (0-5/hpf); Band 2 % (5-11); Eosinophils 3 % (0-10); Hypochromia SLIGHT = 6-15 cells (100X) (0-5/hpf); Lymphocytes 11 % (21-51); MDiff Complete? YES; Monocytes 9 % (0-10); Neutrophil 74 % (42-75); Reactive Lymphocytes 1 % (0-10)
[2020-12-19] MEDS: Sevelamer Carbonate 800 MG TAB PO SCH ×2 (08:00→13:10)
[2020-12-19 08:02] VITALS: TEMP 96.3
[2020-12-19] MEDS: Polyethylene Glycol 3350 17 GM Packet PO SCH ×2 (09:00→13:12)
[2020-12-19] MEDS: Senokot S 8.6-50 MG TAB PO SCH (09:00)
[2020-12-19] MEDS: Midodrine HCl 5 MG TAB PO SCH ×2 (09:00→15:00)
[2020-12-19] MEDS: Lantus 1000 UNITS/10 ML VIAL SC SCH (09:00)
[2020-12-19] MEDS ORDERED: Heparin 10,000 UNITS/ 10 ML VIAL ONE (09:06)
[2020-12-19] MEDS: Apixaban 5 MG TAB PO SCH (13:10)
[2020-12-19] MEDS: Ferrous Sulfate 325 MG TAB PO SCH (13:10)
[2020-12-19] MEDS: Aspirin 81 mg Enteric Coated Tablet PO SCH (13:10)
[2020-12-19] MEDS: Calcitriol 0.25 MCG CAP PO SCH (13:10)
[2020-12-19 13:21] VITALS: BP 104/63
== END 2020-12-19 15:45 | DRG 673 ==
LOC: ERS 17:04 → ERHOLD 19:53 → 2NO 11-30 19:29 → CCU 12-04 16:32 → 2NO 12-06 01:23
PROVIDERS: ADMIT Internal Medicine; ATTEND Family Medicine
PROC: 5A09457 Assistance with Respiratory Ventilation, 24-96 Consecutive Hours, Continuous Positive Airway Pressure (ICD-10-PCS; 2020-11-29)
PROC: 06HY33Z Insertion of Infusion Device into Lower Vein, Percutaneous Approach (ICD-10-PCS; 2020-11-30)
PROC: 5A1D70Z Performance of Urinary Filtration, Intermittent, Less than 6 Hours Per Day (ICD-10-PCS; 2020-11-30)
PROC: 0WHG43Z Insertion of Infusion Device into Peritoneal Cavity, Percutaneous Endoscopic Approach (ICD-10-PCS; principal; 2020-12-04)
PROC: 031C0ZF Bypass Left Radial Artery to Lower Arm Vein, Open Approach (ICD-10-PCS; 2020-12-04)
PROC: 0DQU4ZZ Repair Omentum, Percutaneous Endoscopic Approach (ICD-10-PCS; 2020-12-04)
PROC: 0JH60XZ Insertion of Tunneled Vascular Access Device into Chest Subcutaneous Tissue and Fascia, Open Approach (ICD-10-PCS; 2020-12-04)
PROC: 02HV33Z Insertion of Infusion Device into Superior Vena Cava, Percutaneous Approach (ICD-10-PCS; 2020-12-04)
PROC: B5181ZA Fluoroscopy of Superior Vena Cava using Low Osmolar Contrast, Guidance (ICD-10-PCS; 2020-12-04)
PROC: 4A023N7 Measurement of Cardiac Sampling and Pressure, Left Heart, Percutaneous Approach (ICD-10-PCS; 2020-12-07)
PROC: B2151ZZ Fluoroscopy of Left Heart using Low Osmolar Contrast (ICD-10-PCS; 2020-12-07)
PROC: B2111ZZ Fluoroscopy of Multiple Coronary Arteries using Low Osmolar Contrast (ICD-10-PCS; 2020-12-07)
DX: E11.22 Type 2 diabetes mellitus with diabetic chronic kidney disease (principal); J96.01 Acute respiratory failure with hypoxia; R57.8 Other shock; I21.4 Non-ST elevation (NSTEMI) myocardial infarction; L03.115 Cellulitis of right lower limb; L03.116 Cellulitis of left lower limb; E87.2 Acidosis; Z20.822 Contact with and (suspected) exposure to COVID-19; I50.32 Chronic diastolic (congestive) heart failure; N18.6 End stage renal disease; N17.9 Acute kidney failure, unspecified; N25.81 Secondary hyperparathyroidism of renal origin; E03.9 Hypothyroidism, unspecified; D63.1 Anemia in chronic kidney disease; I87.2 Venous insufficiency (chronic) (peripheral); E87.5 Hyperkalemia; E11.319 Type 2 diabetes mellitus with unspecified diabetic retinopathy without macular edema; E66.01 Morbid (severe) obesity due to excess calories; I48.0 Paroxysmal atrial fibrillation; E87.70 Fluid overload, unspecified; I11.0 Hypertensive heart disease with heart failure; E77.8 Other disorders of glycoprotein metabolism; I25.10 Atherosclerotic heart disease of native coronary artery without angina pectoris; K76.9 Liver disease, unspecified; D50.9 Iron deficiency anemia, unspecified; K80.20 Calculus of gallbladder without cholecystitis without obstruction; R00.1 Bradycardia, unspecified; I95.89 Other hypotension; Z79.82 Long term (current) use of aspirin; Z79.890 Hormone replacement therapy; Z79.899 Other long term (current) drug therapy; Z79.4 Long term (current) use of insulin; Z68.36 Body mass index [BMI] 36.0-36.9, adult; Z82.3 Family history of stroke; Z87.891 Personal history of nicotine dependence; Z98.41 Cataract extraction status, right eye; Z89.431 Acquired absence of right foot
CPT/HCPCS: 36415; 36416; 71045; 74018; 76705; 76942; 80048; 80053; 80061; 80076; 80202; 80400; 82553; 82977; 83605; 83690; 83735; 83880; 83970; 84100; 84443; 84484; 85025; 85347; 86580; 86704; 86706; 86803; 87040; 87340; 90935; 90945; 93005; 93010; 93306; 93458; 93970; 94640; 94760; 96365; 96375; 99152; C1752; G0257; J0171; J0282; J0692; J0834; J1642; J1644; J1815; J1940; J2001; J2250; J2370; J2405; J2704; J2720; J3010; J3370; J3490; J7070; J7611; P9045; P9047; Q5105; Q9967; S0020; U0002; U0005

== ENCOUNTER 2021-02-07 00:05 | Inpatient (IN) | payer MEDICARE, OTHER ==
[2021-02-07 00:48] LABS: Hemoglobin 11.6 g/dL (14.0-18.0); Mean Corpuscular HGB CONC 29.6 g/dL (32.0-36.0); Mean Corpuscular Hemoglobin 24.7 pg (27.0-31.0); Mean Corpuscular Volume 83.5 fL (78.0-98.0); Mean Platelet Volume 7.7 fL (7.4-10.4); Platelet Count 243 thou/uL (130-400); RBC Distribution Width 19.6 % (11.5-14.5); Red Blood Cell (RBC) Count 4.71 mill/uL (4.70-6.10); White Blood Cell (WBC) Count 19.8 thou/uL (4.8-10.8)
[2021-02-07 01:10] LABS: ALT (SGPT) 18 U/L (8-55); AST (SGOT) 21 U/L (5-34); Alkaline Phosphatase 198 U/L (40-110); Anion Gap 16 mmol/L (10-20); BUN (Urea Nitrogen) 51 mg/dL (8.4-25.7); Bilirubin, Total 0.6 mg/dL (0.2-1.2); Calc. Creatinine Clearance 0 mL/min (70-130); Calcium 8.4 mg/dL (7.8-10.44); Carbon Dioxide 24 mmol/L (23-31); Chloride 91 mmol/L (98-107); Glucose 181 mg/dL (80-115); Sodium 127 mmol/L (136-145)
[2021-02-07 01:20] LABS: Band 13 % (5-11); Hypochromia SLIGHT = 6-15 cells (100X) (0-5/hpf); Lymphocytes 3 % (21-51); MDiff Complete? YES; Monocytes 9 % (0-10); Neutrophil 74 % (42-75); Platelet Morphology Comment Appears Adequate; Reactive Lymphocytes 1 % (0-10); Tear Drops SLIGHT = 2-5 cells (100X) (0-1/hpf)
[2021-02-07] MEDS ORDERED: Cefepime 2 GM VIAL ONE ×2 (01:31→01:34)
[2021-02-07] MEDS ORDERED: Vancomycin 1 GM/200 ML BAG ONE (02:30)
[2021-02-07 03:23] LABS: SARS-CoV-2 NAA Rapid Test Not Detected (NotDetected)
[2021-02-07] MEDS ORDERED: Sodium Chloride 0.9% 1,000 ML IV SCH (05:45)
[2021-02-07] MEDS: Midodrine HCl 5 MG TAB PO SCH ×3 (09:08→21:07)
[2021-02-07] MEDS ORDERED: Ondansetron PF 4 MG/2 ML Vial IVP PRN (09:49)
[2021-02-07] MEDS ORDERED: Acetaminophen 325 MG TAB PO PRN (09:49)
[2021-02-07] MEDS ORDERED: Calcium Carbonate 500 MG ChewTAB PO PRN (09:49)
[2021-02-07] MEDS ORDERED: Dextrose 5% in Water 1,000 ML IV PRN (10:10)
[2021-02-07] MEDS ORDERED: Dextrose 50% Abboject 50 ML SYRINGE SLOW IVP PRN (10:10)
[2021-02-07] MEDS: HumaLOG 300 UNITS/3 ML VIAL SC PRN ×3 (11:07→21:08)
[2021-02-07] MEDS ORDERED: FLU VACC QS2021-22(65YR UP)/PF 240 MCG/0.7 ML SYRINGE IM ONE (12:00)
[2021-02-07] MEDS: Sevelamer Carbonate 800 MG TAB PO SCH ×2 (12:13→16:43)
[2021-02-07 12:38] LABS: Glucose 152 mg/dL (80-115)
[2021-02-07] MEDS ORDERED: Vancomycin 1 GM in Premix Bag 1 BAG IVPB SCH (13:15)
[2021-02-07] MEDS ORDERED: Vancomycin HCl 1.5 GM in Sodium Chloride 0.9% 250 ML 300 ML IVPB SCH (13:15)
[2021-02-07] MEDS ORDERED: HOLD VANCOMYCIN FOR LEVEL >20 FS SCH (13:15)
[2021-02-07] MEDS ORDERED: Vancomycin HCl 1.25 GM in Sodium Chloride 0.9% 250 ML 250 ML IVPB SCH (13:15)
[2021-02-07] MEDS ORDERED: Vancomycin HCl 750 MG in Sodium Chloride 0.9% 250 ML 250 ML IVPB SCH (13:15)
[2021-02-07 14:10] LABS: RBC Count-Automated (BF) 13913 /cu.mm; WBC/Nucleated-Auto (BF) 306 uL
[2021-02-07 14:28] LABS: BF Color Pink; Body Fluid Source Peritoneal Fluid; Clarity Hazy (Clear); Tube # EDTA
[2021-02-07 14:44] LABS: BF Segmented Neutrophils 37 %; Cell Count Non Hematic 36 %; Lymphocytes 27 %
[2021-02-07] MEDS ORDERED: Polyvinyl Alcohol 1.4%/Povidone 0.6% Opth Drops EA EYE PRN (15:49)
[2021-02-07] MEDS: Benzonatate 100 MG CAP PO PRN ×2 (16:43→21:07)
[2021-02-07] MEDS: Apixaban 5 MG TAB PO SCH (21:06)
[2021-02-07] MEDS: Cholecalciferol 1,000 UNITS (25 MCG) TAB PO SCH (21:07)
[2021-02-07] MEDS: Senokot S 8.6-50 MG TAB PO SCH (21:07)
[2021-02-07] MEDS: Simvastatin 10 MG TAB PO SCH (21:08)
[2021-02-07] MEDS: Lantus 1000 UNITS/10 ML VIAL SC SCH (21:22)
[2021-02-07] MEDS ORDERED: Chloraseptic Spray 180 ml Bottle PO PRN (22:07)
[2021-02-07] MEDS ORDERED: Guaifenesin DM 100-10/5 ML UDCUP PO PRN (22:07)
[2021-02-08] MEDS: Cefepime 0.5 GM in Sodium Chloride 0.9% 100 ML IVPB SCH ×2 (00:08→23:55)
[2021-02-08 02:11] LABS: Hemoglobin 11.3 g/dL (14.0-18.0); Hypochromia SLIGHT = 6-15 cells (100X) (0-5/hpf); MDiff Complete? YES; Mean Corpuscular HGB CONC 30.2 g/dL (32.0-36.0); Mean Corpuscular Hemoglobin 25.5 pg (27.0-31.0); Mean Corpuscular Volume 84.5 fL (78.0-98.0); Mean Platelet Volume 7.8 fL (7.4-10.4); Monocytes 7 % (0-10); Neutrophil 93 % (42-75); Platelet Count 237 thou/uL (130-400); Platelet Morphology Comment Appears Adequate; RBC Distribution Width 19.3 % (11.5-14.5); Red Blood Cell (RBC) Count 4.45 mill/uL (4.70-6.10); White Blood Cell (WBC) Count 13.7 thou/uL (4.8-10.8)
[2021-02-08 02:13] LABS: Vancomycin, Trough 8.7 ug/mL
[2021-02-08 02:25] LABS: Albumin 2.8 g/dL (3.4-4.8); Anion Gap 16 mmol/L (10-20); BUN (Urea Nitrogen) 65 mg/dL (8.4-25.7); BUN/Creatinine Ratio 11.46; Calc. Creatinine Clearance 20 mL/min (70-130); Calcium 8.2 mg/dL (7.8-10.44); Carbon Dioxide 22 mmol/L (23-31); Chloride 91 mmol/L (98-107); Glucose 202 mg/dL (80-115); Phosphorus 3.8 mg/dL (2.3-4.7); Potassium 3.8 mmol/L (3.5-5.1); Sodium 125 mmol/L (136-145)
[2021-02-08] MEDS ORDERED: VANCOMYCIN 1.25 GM/250 ML BAG 1.25 GM in Premix Bag 1 BAG IVPB SCH (02:30)
[2021-02-08] MEDS: Levothyroxine 150 MCG TAB PO SCH (05:52)
[2021-02-08 06:08] VITALS: BMI 32.4
[2021-02-08 07:49] LABS: Glucose 114 mg/dL (80-115)
[2021-02-08] MEDS ORDERED: Heparin 10,000 UNITS/ 10 ML VIAL ONE (09:10)
[2021-02-08] MEDS: Midodrine HCl 5 MG TAB PO SCH ×3 (10:16→20:47)
[2021-02-08] MEDS: Sevelamer Carbonate 800 MG TAB PO SCH ×3 (10:18→16:06)
[2021-02-08] MEDS: Cholecalciferol 1,000 UNITS (25 MCG) TAB PO SCH ×2 (10:18→20:47)
[2021-02-08] MEDS: Aspirin 81 mg Enteric Coated Tablet PO SCH (10:18)
[2021-02-08] MEDS: Apixaban 5 MG TAB PO SCH ×2 (10:18→20:47)
[2021-02-08] MEDS: Senokot S 8.6-50 MG TAB PO SCH ×2 (10:19→20:48)
[2021-02-08] MEDS: Benzonatate 100 MG CAP PO PRN ×2 (11:52→21:03)
[2021-02-08 12:54] LABS: Glucose 123 mg/dL (80-115)
[2021-02-08] MEDS: Simvastatin 10 MG TAB PO SCH (20:48)
[2021-02-08] MEDS: Lantus 1000 UNITS/10 ML VIAL SC SCH (20:53)
[2021-02-09 05:19] LABS: #Eosinphils 0.1 thou/uL (0.0-0.7); #Lymphocytes 0.7 thou/uL (1.20-3.40); #Monocytes 1.3 thou/uL (0.11-0.59); %Basophils 0.1 % (0.0-1.0); %Eosinophils 0.7 % (0.0-10.0); %Lymphocytes 7.4 % (21.0-51.0); %Monocytes 14.1 % (0.0-10.0); %Neutrophils 77.6 % (42.0-75.0); Hemoglobin 11.2 g/dL (14.0-18.0); Mean Corpuscular HGB CONC 29.8 g/dL (32.0-36.0); Mean Corpuscular Hemoglobin 24.7 pg (27.0-31.0); Mean Corpuscular Volume 83.1 fL (78.0-98.0); Platelet Count 256 thou/uL (130-400); RBC Distribution Width 19.3 % (11.5-14.5); Red Blood Cell (RBC) Count 4.53 mill/uL (4.70-6.10)
[2021-02-09 05:25] LABS: Anion Gap 16 mmol/L (10-20); BUN (Urea Nitrogen) 50 mg/dL (8.4-25.7); Calc. Creatinine Clearance 21 mL/min (70-130); Calcium 8.1 mg/dL (7.8-10.44); Carbon Dioxide 25 mmol/L (23-31); Chloride 93 mmol/L (98-107); Glucose 97 mg/dL (80-115); Potassium 3.6 mmol/L (3.5-5.1); Sodium 130 mmol/L (136-145)
[2021-02-09 05:26] LABS: Vancomycin, Random 23.6 ug/mL (See Comment)
[2021-02-09] MEDS: Apixaban 5 MG TAB PO SCH ×2 (09:08→20:44)
[2021-02-09] MEDS: Aspirin 81 mg Enteric Coated Tablet PO SCH (09:08)
[2021-02-09] MEDS: Levothyroxine 150 MCG TAB PO SCH (09:08)
[2021-02-09] MEDS: Cholecalciferol 1,000 UNITS (25 MCG) TAB PO SCH ×2 (09:08→20:43)
[2021-02-09] MEDS: Calcitriol 0.25 MCG CAP PO SCH (09:08)
[2021-02-09] MEDS: Midodrine HCl 5 MG TAB PO SCH ×3 (09:08→20:44)
[2021-02-09] MEDS: Senokot S 8.6-50 MG TAB PO SCH ×2 (09:08→20:44)
[2021-02-09] MEDS: Sevelamer Carbonate 800 MG TAB PO SCH ×3 (09:08→16:36)
[2021-02-09 11:04] LABS: RBC Count-Automated (BF) 11050 /cu.mm; WBC/Nucleated-Auto (BF) 672 uL
[2021-02-09 11:25] LABS: BF Color Pink; Body Fluid Source Peritoneal Fluid; Clarity Cloudy/Turbid (Clear); Tube # EDTA
[2021-02-09 11:29] LABS: BF Segmented Neutrophils 59 %; Cell Count Non Hematic 35 %; Lymphocytes 6 %
[2021-02-09] MEDS: HumaLOG 300 UNITS/3 ML VIAL SC PRN (17:28)
[2021-02-09] MEDS: Simvastatin 10 MG TAB PO SCH (20:43)
[2021-02-09] MEDS: Lantus 1000 UNITS/10 ML VIAL SC SCH (20:44)
[2021-02-09] MEDS: Cefepime 0.5 GM in Sodium Chloride 0.9% 100 ML IVPB SCH (23:51)
[2021-02-10] MEDS: Levothyroxine 150 MCG TAB PO SCH (05:24)
[2021-02-10 05:28] LABS: Anion Gap 14 mmol/L (10-20); BUN (Urea Nitrogen) 63 mg/dL (8.4-25.7); BUN/Creatinine Ratio 10.41; Calc. Creatinine Clearance 19 mL/min (70-130); Calcium 8.8 mg/dL (7.8-10.44); Carbon Dioxide 26 mmol/L (23-31); Chloride 89 mmol/L (98-107); Glucose 64 mg/dL (80-115); Phosphorus 4.3 mg/dL (2.3-4.7); Potassium 3.9 mmol/L (3.5-5.1); Sodium 125 mmol/L (136-145)
[2021-02-10 05:30] LABS: #Eosinphils 0.1 thou/uL (0.0-0.7); #Monocytes 1.1 thou/uL (0.11-0.59); #Neutrophils 5.9 thou/uL (1.40-6.50); %Basophils 0.1 % (0.0-1.0); %Eosinophils 1.3 % (0.0-10.0); %Lymphocytes 11.9 % (21.0-51.0); %Monocytes 13.6 % (0.0-10.0); %Neutrophils 73.2 % (42.0-75.0); Mean Corpuscular HGB CONC 29.8 g/dL (32.0-36.0); Mean Corpuscular Hemoglobin 24.5 pg (27.0-31.0); Mean Corpuscular Volume 82.3 fL (78.0-98.0); Mean Platelet Volume 7.9 fL (7.4-10.4); Platelet Count 285 thou/uL (130-400); Red Blood Cell (RBC) Count 4.89 mill/uL (4.70-6.10)
[2021-02-10 05:32] LABS: Phosphorus 4.4 mg/dL (2.3-4.7)
[2021-02-10] MEDS: Midodrine HCl 5 MG TAB PO SCH ×3 (08:07→20:44)
[2021-02-10] MEDS: Sevelamer Carbonate 800 MG TAB PO SCH ×3 (09:58→16:16)
[2021-02-10] MEDS: Cholecalciferol 1,000 UNITS (25 MCG) TAB PO SCH ×2 (09:59→20:44)
[2021-02-10] MEDS: Apixaban 5 MG TAB PO SCH ×2 (09:59→20:44)
[2021-02-10] MEDS: Senokot S 8.6-50 MG TAB PO SCH ×2 (09:59→20:45)
[2021-02-10 10:16] LABS: Vancomycin, Random 23.1 ug/mL (See Comment)
[2021-02-10] MEDS ORDERED: Heparin 10,000 UNITS/ 10 ML VIAL ONE (10:49)
[2021-02-10] MEDS: Aspirin 81 mg Enteric Coated Tablet PO SCH (14:15)
[2021-02-10] MEDS: Simvastatin 10 MG TAB PO SCH (20:45)
[2021-02-10] MEDS: Lantus 1000 UNITS/10 ML VIAL SC SCH (20:45)
[2021-02-10] MEDS ORDERED: Cefepime 0.5 GM, Admixture Fee 1 EACH in Sodium Chloride 0.9% 100 ML IVPB SCH (23:59)
[2021-02-11] MEDS: Levothyroxine 150 MCG TAB PO SCH (05:26)
[2021-02-11] MEDS: Aspirin 81 mg Enteric Coated Tablet PO SCH (08:40)
[2021-02-11] MEDS: Cholecalciferol 1,000 UNITS (25 MCG) TAB PO SCH ×2 (08:40→21:10)
[2021-02-11] MEDS: Senokot S 8.6-50 MG TAB PO SCH ×2 (08:40→21:09)
[2021-02-11] MEDS: Sevelamer Carbonate 800 MG TAB PO SCH ×3 (08:40→17:23)
[2021-02-11] MEDS: Apixaban 5 MG TAB PO SCH ×2 (08:42→21:10)
[2021-02-11] MEDS: Midodrine HCl 5 MG TAB PO SCH ×3 (08:42→21:09)
[2021-02-11 11:13] LABS: Vancomycin, Random 15.7 ug/mL (See Comment)
[2021-02-11 11:15] LABS: Anion Gap 19 mmol/L (10-20); BUN (Urea Nitrogen) 37 mg/dL (8.4-25.7); Calc. Creatinine Clearance 24 mL/min (70-130); Calcium 8.5 mg/dL (7.8-10.44); Carbon Dioxide 23 mmol/L (23-31); Chloride 92 mmol/L (98-107); Glucose 63 mg/dL (80-115); Potassium 4.4 mmol/L (3.5-5.1); Sodium 130 mmol/L (136-145)
[2021-02-11 11:41] LABS: Band 10 % (5-11); Hemoglobin 11.9 g/dL (14.0-18.0); Lymphocytes 16 % (21-51); MDiff Complete? YES; Mean Corpuscular HGB CONC 30.5 g/dL (32.0-36.0); Mean Corpuscular Hemoglobin 25.4 pg (27.0-31.0); Mean Corpuscular Volume 83.3 fL (78.0-98.0); Mean Platelet Volume 7.7 fL (7.4-10.4); Monocytes 8 % (0-10); Neutrophil 66 % (42-75); Platelet Count 301 thou/uL (130-400); RBC Distribution Width 19.2 % (11.5-14.5); Red Blood Cell (RBC) Count 4.68 mill/uL (4.70-6.10); White Blood Cell (WBC) Count 8.2 thou/uL (4.8-10.8)
[2021-02-11] MEDS ORDERED: Vancomycin HCl 750 MG in Sodium Chloride 0.9% 250 ML 250 ML IVPB SCH (12:15)
[2021-02-11] MEDS: Lantus 1000 UNITS/10 ML VIAL SC SCH (21:11)
[2021-02-11] MEDS: Simvastatin 10 MG TAB PO SCH (21:11)
[2021-02-11] MEDS: Cefepime 0.5 GM, Admixture Fee 1 EACH in Sodium Chloride 0.9% 100 ML IVPB SCH (21:18)
[2021-02-12] MEDS: Levothyroxine 150 MCG TAB PO SCH (07:14)
[2021-02-12] MEDS: Aspirin 81 mg Enteric Coated Tablet PO SCH (08:10)
[2021-02-12] MEDS: Calcitriol 0.25 MCG CAP PO SCH (08:11)
[2021-02-12] MEDS: Midodrine HCl 5 MG TAB PO SCH ×3 (08:11→21:09)
[2021-02-12] MEDS: Apixaban 5 MG TAB PO SCH ×2 (08:11→21:08)
[2021-02-12] MEDS: Sevelamer Carbonate 800 MG TAB PO SCH ×3 (08:12→16:55)
[2021-02-12] MEDS: Senokot S 8.6-50 MG TAB PO SCH ×3 (08:12→21:09)
[2021-02-12] MEDS: Cholecalciferol 1,000 UNITS (25 MCG) TAB PO SCH ×2 (08:13→21:08)
[2021-02-12] MEDS: Cefepime 0.5 GM, Admixture Fee 1 EACH in Sodium Chloride 0.9% 100 ML IVPB SCH (21:07)
[2021-02-12] MEDS: Lantus 1000 UNITS/10 ML VIAL SC SCH (21:08)
[2021-02-12] MEDS: Simvastatin 10 MG TAB PO SCH (21:09)
[2021-02-13] MEDS: Levothyroxine 150 MCG TAB PO SCH (06:10)
[2021-02-13] MEDS: Midodrine HCl 5 MG TAB PO SCH ×3 (10:01→21:41)
[2021-02-13] MEDS ORDERED: Heparin 10,000 UNITS/ 10 ML VIAL ONE ×2 (10:25→11:40)
[2021-02-13 10:56] LABS: Hemoglobin 11.7 g/dL (14.0-18.0); Mean Corpuscular HGB CONC 30.8 g/dL (32.0-36.0); Mean Corpuscular Hemoglobin 25.3 pg (27.0-31.0); Platelet Count 304 thou/uL (130-400); RBC Distribution Width 19.3 % (11.5-14.5); Red Blood Cell (RBC) Count 4.62 mill/uL (4.70-6.10); White Blood Cell (WBC) Count 7.5 thou/uL (4.8-10.8)
[2021-02-13 11:04] LABS: Anion Gap 17 mmol/L (10-20); BUN (Urea Nitrogen) 55 mg/dL (8.4-25.7); Calc. Creatinine Clearance 19 mL/min (70-130); Calcium 8.4 mg/dL (7.8-10.44); Carbon Dioxide 22 mmol/L (23-31); Chloride 89 mmol/L (98-107); Glucose 78 mg/dL (80-115); Potassium 4.6 mmol/L (3.5-5.1); Sodium 123 mmol/L (136-145)
[2021-02-13 11:12] LABS: Anisocytosis SLIGHT = 6-15 cells (100X) (0-5/hpf); Band 1 % (5-11); Eosinophils 2 % (0-10); Hypochromia SLIGHT = 6-15 cells (100X) (0-5/hpf); Lymphocytes 6 % (21-51); MDiff Complete? YES; Monocytes 13 % (0-10); Neutrophil 77 % (42-75); Nucleated RBC 1 % (0); Ovalocytes SLIGHT = 2-5 cells (100X) (0-1/hpf); Platelet Morphology Comment Appears Adequate; Polychromasia SLIGHT = 2-3 cells (100X) (0-2/hpf)
[2021-02-13 11:25] LABS: Vancomycin, Random 20.8 ug/mL (See Comment)
[2021-02-13] MEDS: Sevelamer Carbonate 800 MG TAB PO SCH ×3 (13:48→17:47)
[2021-02-13] MEDS: Cholecalciferol 1,000 UNITS (25 MCG) TAB PO SCH ×2 (14:30→21:40)
[2021-02-13] MEDS: Aspirin 81 mg Enteric Coated Tablet PO SCH (14:30)
[2021-02-13] MEDS: Apixaban 5 MG TAB PO SCH ×2 (14:30→21:40)
[2021-02-13] MEDS: Senokot S 8.6-50 MG TAB PO SCH ×2 (14:34→21:41)
[2021-02-13] MEDS: Lantus 1000 UNITS/10 ML VIAL SC SCH (21:40)
[2021-02-13] MEDS: Simvastatin 10 MG TAB PO SCH (21:42)
[2021-02-14] MEDS: Levothyroxine 150 MCG TAB PO SCH (06:12)
[2021-02-14 08:21] LABS: Anion Gap 16 mmol/L (10-20); BUN (Urea Nitrogen) 32 mg/dL (8.4-25.7); Calc. Creatinine Clearance 24 mL/min (70-130); Calcium 8.8 mg/dL (7.8-10.44); Carbon Dioxide 27 mmol/L (23-31); Chloride 92 mmol/L (98-107); Glucose 93 mg/dL (80-115); Potassium 4.1 mmol/L (3.5-5.1); Sodium 131 mmol/L (136-145)
[2021-02-14 09:52] VITALS: TEMP 98.5
[2021-02-14] MEDS: Senokot S 8.6-50 MG TAB PO SCH (11:37)
[2021-02-14] MEDS: Midodrine HCl 5 MG TAB PO SCH ×2 (11:38→15:10)
[2021-02-14] MEDS: Apixaban 5 MG TAB PO SCH (11:38)
[2021-02-14] MEDS: Aspirin 81 mg Enteric Coated Tablet PO SCH (11:38)
[2021-02-14] MEDS: Cholecalciferol 1,000 UNITS (25 MCG) TAB PO SCH (11:38)
[2021-02-14] MEDS: Calcitriol 0.25 MCG CAP PO SCH (11:38)
[2021-02-14] MEDS: Sevelamer Carbonate 800 MG TAB PO SCH ×2 (11:39→11:46)
[2021-02-14] MEDS ORDERED: Heparin 10,000 UNITS/ 10 ML VIAL ONE (11:39)
[2021-02-14 13:11] VITALS: BP 115/68
== END 2021-02-14 20:11 | disposition home health service (06) | DRG 871 ==
LOC: ERS 00:05 → 2NO 02:37
PROVIDERS: ADMIT Internal Medicine; ATTEND Family Medicine
PROC: 5A1D70Z Performance of Urinary Filtration, Intermittent, Less than 6 Hours Per Day (ICD-10-PCS; principal; 2021-02-08)
DX: A41.9 Sepsis, unspecified organism (principal); N18.6 End stage renal disease; Z20.822 Contact with and (suspected) exposure to COVID-19; L03.115 Cellulitis of right lower limb; I82.C11 Acute embolism and thrombosis of right internal jugular vein; I82.890 Acute embolism and thrombosis of other specified veins; I12.0 Hypertensive chronic kidney disease with stage 5 chronic kidney disease or end stage renal disease; I31.3 Pericardial effusion (noninflammatory); J91.8 Pleural effusion in other conditions classified elsewhere; E87.1 Hypo-osmolality and hyponatremia; R18.8 Other ascites; I48.0 Paroxysmal atrial fibrillation; I87.2 Venous insufficiency (chronic) (peripheral); E11.22 Type 2 diabetes mellitus with diabetic chronic kidney disease; I95.89 Other hypotension; I25.10 Atherosclerotic heart disease of native coronary artery without angina pectoris; D63.1 Anemia in chronic kidney disease; R05.3 Chronic cough; E87.70 Fluid overload, unspecified; R13.10 Dysphagia, unspecified; H43.11 Vitreous hemorrhage, right eye; E11.3591 Type 2 diabetes mellitus with proliferative diabetic retinopathy without macular edema, right eye; Z28.21 Immunization not carried out because of patient refusal; Z99.2 Dependence on renal dialysis; Z98.890 Other specified postprocedural states; Z79.82 Long term (current) use of aspirin; Z79.899 Other long term (current) drug therapy; Z79.890 Hormone replacement therapy; Z79.4 Long term (current) use of insulin; Z86.39 Personal history of other endocrine, nutritional and metabolic disease
CPT/HCPCS: 36415; 36416; 70551; 71045; 71250; 74177; 74230; 80048; 80053; 80069; 80202; 82947; 83605; 83970; 84100; 85007; 85025; 85027; 85060; 87040; 87070; 87205; 87804; 89051; 90935; 90945; 93005; 93306; 93880; 96365; 96367; G0257; J0692; J1644; J1815; J3370; J3490; J7050; U0002

== ENCOUNTER 2021-03-03 15:37 | Inpatient (IN) | payer MEDICARE, OTHER ==
[~2021-03-03 15:37] MED LIST: Iopamidol-370 76% 500 ML 1 ML ONE
[2021-03-03] MEDS ORDERED: Fentanyl 100 MCG/2 ML VIAL ONE (15:42)
[2021-03-03] MEDS ORDERED: Fentanyl CADD 100 ML IV SCH ×2 (16:00→19:30)
[2021-03-03] MEDS ORDERED: Fentanyl BOLUS 250 ML IVPB PRN ×2 (16:00→19:30)
[2021-03-03 16:08] LABS: Hemoglobin 13.1 g/dL (14.0-18.0); Mean Corpuscular HGB CONC 30.3 g/dL (32.0-36.0); Mean Corpuscular Hemoglobin 26.1 pg (27.0-31.0); Mean Platelet Volume 8.4 fL (7.4-10.4); Platelet Count 189 thou/uL (130-400); Red Blood Cell (RBC) Count 5.03 mill/uL (4.70-6.10)
[2021-03-03 16:13] LABS: INR-International Normal Ratio 1.5; Prothrombin Time 18.6 sec (12.0-14.7)
[2021-03-03 16:14] LABS: PTT 35.5 sec (22.9-36.1)
[2021-03-03 16:18] LABS: Actual Bicarbonate (HCO3a) 20.2 mEq/L (22-28); Analyzer IN Cardio ER; Base Excess (BEa) -4.4 mEq/L (-2.0 to +3.0); CO2 Tension 35.7 mmHg (35.0-45.0); Calcium, Ionized (arterial) 1.23 mmol/L (1.12-1.30); Carboxyhemoglobin (COHb) 1.6 gm% (0.0-3.0); Hemoglobin (Hb) 13.5 g/dL (14.0-18.0); O2 Tension (PaO2), arterial 111.4 mmHg (> 80.0); Potassium - ABG Lab 3.74 mmol/L (3.70-5.30); pH, Arterial 7.37 (7.35-7.45)
[2021-03-03 16:18] LABS: Anisocytosis MODERATE=16-30 cells (100X) (0-5/hpf); Band 4 % (5-11); Hypochromia SLIGHT = 6-15 cells (100X) (0-5/hpf); Lymphocytes 7 % (21-51); MDiff Complete? YES; Metamyelocyte 3 % (0-0); Monocytes 10 % (0-10); Neutrophil 69 % (42-75); Nucleated RBC 3 % (0); Platelet Morphology Comment Appears Adequate; Polychromasia MODERATE = 3-4 cells (100X) (0-2/hpf); Reactive Lymphocytes 7 % (0-10); Target Cells SLIGHT = 2-5 cells (100X) (0-1/hpf)
[2021-03-03 16:19] LABS: ALV-art Gradient 556.975 mmHg (0-20); Puncture Site RBA
[2021-03-03 16:26] LABS: ALT (SGPT) 21 U/L (8-55); AST (SGOT) 27 U/L (5-34); Albumin 2.5 g/dL (3.4-4.8); Alkaline Phosphatase 193 U/L (40-110); Anion Gap 17 mmol/L (10-20); BUN (Urea Nitrogen) 32 mg/dL (8.4-25.7); Bilirubin, Total 0.6 mg/dL (0.2-1.2); Calc. Creatinine Clearance 0 mL/min (70-130); Carbon Dioxide 21 mmol/L (23-31); Chloride 97 mmol/L (98-107); Globulin 3.2 g/dL (2.4-3.5); Glucose 135 mg/dL (80-115); Lipase 40 U/L (8-78); Magnesium 2.6 mg/dL (1.6-2.6); Potassium 4.1 mmol/L (3.5-5.1); Protein, Total 5.7 g/dL (5.8-8.1); Sodium 131 mmol/L (136-145)
[2021-03-03] MEDS ORDERED: Cefepime 2 GM VIAL ONE (16:37)
[2021-03-03] MEDS ORDERED: Calcium Chloride 1 GM/10 ML Abboject SYRINGE ONE (16:42)
[2021-03-03] MEDS ORDERED: Sodium Bicarb 50 MEQ/50 ML Abboject 8.4% SYRINGE ONE (16:42)
[2021-03-03] MEDS ORDERED: Dexamethasone 10 MG/ML VIAL ONE (17:24)
[2021-03-03] MEDS ORDERED: Vancomycin 1 GM/200 ML BAG ONE ×2 (17:25→19:30)
[2021-03-03 17:39] LABS: CKMB 8.5 ng/mL (0-6.6)
[2021-03-03] MEDS ORDERED: DOBUTamine 500 mg/250 ml 250 ML IVPB SCH ×2 (18:00→19:15)
[2021-03-03 18:04] LABS: SARS-CoV-2 NAA Rapid Test Not Detected (NotDetected)
[2021-03-03 18:06] VITALS: BMI 33.8
[2021-03-03] MEDS ORDERED: Acetaminophen 650 MG Suppository PR PRN (18:17)
[2021-03-03] MEDS ORDERED: Ondansetron PF 4 MG/2 ML Vial IVP PRN (18:17)
[2021-03-03] MEDS ORDERED: Norepinephrine 8 MG/0.9% NS 250 ML IVPB PRN (18:17)
[2021-03-03] MEDS ORDERED: Insulin Regular 300 UNITS/3 ML VIAL SC PRN ×2 (18:26)
[2021-03-03] MEDS ORDERED: Dextrose 50% Abboject 50 ML SYRINGE SLOW IVP PRN (18:26)
[2021-03-03] MEDS ORDERED: Dextrose 5% in Water 1,000 ML IV PRN (18:26)
[2021-03-03] MEDS: Albumin 25% 25 GM/100 ML BOT IVPB SCH ×2 (18:30→23:40)
[2021-03-03] MEDS ORDERED: Ventilator Sedation Protocol 1 EACH FS SCH (18:30)
[2021-03-03] MEDS ORDERED: HOLD VANCOMYCIN FOR LEVEL >20 FS SCH (19:00)
[2021-03-03] MEDS ORDERED: Vancomycin HCl 750 MG in Sodium Chloride 0.9% 250 ML 250 ML IVPB SCH (19:00)
[2021-03-03] MEDS ORDERED: Vancomycin 1 GM in Premix Bag 1 BAG IVPB SCH ×2 (19:00→19:15)
[2021-03-03] MEDS ORDERED: Vancomycin HCl 1.25 GM in Sodium Chloride 0.9% 250 ML 250 ML IVPB SCH (19:00)
[2021-03-03] MEDS ORDERED: Vancomycin HCl 1.5 GM in Sodium Chloride 0.9% 250 ML 300 ML IVPB SCH (19:00)
[2021-03-03] MEDS ORDERED: DOBUTamine 500 mg/250 ml 250 ML ONE (19:12)
[2021-03-03 19:13] LABS: Lactic Acid 3.1 mmol/L (0.5-2.2)
[2021-03-03] MEDS ORDERED: Morphine 2 MG/ML VIAL SLOW IVP PRN (19:30)
[2021-03-03] MEDS ORDERED: Propofol 1,000 MG/100 ML VIAL IV PRN (19:30)
[2021-03-03] MEDS ORDERED: DISCONTINUE PREVIOUS NARCOTIC PAIN MEDICATIONS AND BENZODIAZEPINES FS SCH (19:30)
[2021-03-03] MEDS ORDERED: Lorazepam 2 MG/ML VIAL SLOW IVP PRN (19:30)
[2021-03-03] MEDS ORDERED: Propofol BOLUS 1,000 MG/100 ML VIAL IV PRN (19:30)
[2021-03-03 19:44] LABS: Troponin I 0.477 ng/mL (< 0.028)
[2021-03-03 23:22] LABS: Troponin I 0.534 ng/mL (< 0.028)
[2021-03-03] MEDS: Heparin 5,000 UNITS/ML VIAL SC SCH (23:40)
[2021-03-04 04:15] LABS: Band 9 % (5-11); Hypochromia SLIGHT = 6-15 cells (100X) (0-5/hpf); Lymphocytes 1 % (21-51); MDiff Complete? YES; Mean Corpuscular HGB CONC 30.4 g/dL (32.0-36.0); Mean Corpuscular Hemoglobin 25.7 pg (27.0-31.0); Mean Corpuscular Volume 84.7 fL (78.0-98.0); Mean Platelet Volume 8.8 fL (7.4-10.4); Monocytes 3 % (0-10); Neutrophil 87 % (42-75); Platelet Count 170 thou/uL (130-400); Platelet Morphology Comment Appears Adequate; RBC Distribution Width 21.4 % (11.5-14.5); Red Blood Cell (RBC) Count 5.05 mill/uL (4.70-6.10); White Blood Cell (WBC) Count 9.8 thou/uL (4.8-10.8)
[2021-03-04 04:38] LABS: ALT (SGPT) 19 U/L (8-55); AST (SGOT) 20 U/L (5-34); Albumin 3.3 g/dL (3.4-4.8); Alkaline Phosphatase 165 U/L (40-110); Anion Gap 21 mmol/L (10-20); BUN (Urea Nitrogen) 38 mg/dL (8.4-25.7); Bilirubin, Total 0.8 mg/dL (0.2-1.2); Calc. Creatinine Clearance 27 mL/min (70-130); Calcium 8.5 mg/dL (7.8-10.44); Carbon Dioxide 21 mmol/L (23-31); Chloride 92 mmol/L (98-107); Globulin 2.8 g/dL (2.4-3.5); Glucose 208 mg/dL (80-115); Potassium 4.4 mmol/L (3.5-5.1); Protein, Total 6.1 g/dL (5.8-8.1); Sodium 130 mmol/L (136-145)
[2021-03-04] MEDS: Albumin 25% 25 GM/100 ML BOT IVPB SCH (05:03)
[2021-03-04 06:31] LABS: Troponin I 0.592 ng/mL (< 0.028)
[2021-03-04 07:34] LABS: Actual Bicarbonate (HCO3a) 17.8 mEq/L (22-28); Base Excess (BEa) -5.4 mEq/L (-2.0 to +3.0); CO2 Tension 28.4 mmHg (35.0-45.0); Carboxyhemoglobin (COHb) 1.4 gm% (0.0-3.0); Hemoglobin (Hb) 13.7 g/dL (14.0-18.0); O2 Tension (PaO2), arterial 79.4 mmHg (> 80.0); Potassium - ABG Lab 4.95 mmol/L (3.70-5.30); pH, Arterial 7.41 (7.35-7.45)
[2021-03-04 07:37] LABS: Puncture Site RRA
[2021-03-04] MEDS ORDERED: DOBUTamine 500 mg/250 ml 250 ML IVPB SCH (08:26)
[2021-03-04] MEDS: Heparin 5,000 UNITS/ML VIAL SC SCH (08:51)
[2021-03-04 10:36] VITALS: BP 113/78
[2021-03-04] MEDS ORDERED: Morphine 4 MG/ML VIAL SLOW IVP PRN (11:42)
[2021-03-04 12:38] VITALS: TEMP 98.1
[2021-03-04] MEDS ORDERED: Cefepime 1 GM in Sodium Chloride 0.9% 100 ML IVPB SCH (18:00)
[2021-03-06] MEDS ORDERED: FLU VACC QS2021-22(65YR UP)/PF 240 MCG/0.7 ML SYRINGE IM ONE (09:00)
== END 2021-03-04 12:58 | disposition expired | DRG 91 ==
LOC: ERS 15:37 → ERHOLD 17:15 → CCU 21:42
PROVIDERS: ADMIT Family Medicine; ATTEND Internal Medicine
PROC: 5A12012 Performance of Cardiac Output, Single, Manual (ICD-10-PCS; principal; 2021-03-03)
PROC: 3E033XZ Introduction of Vasopressor into Peripheral Vein, Percutaneous Approach (ICD-10-PCS; 2021-03-03)
PROC: 05HY33Z Insertion of Infusion Device into Upper Vein, Percutaneous Approach (ICD-10-PCS; 2021-03-03)
PROC: 5A1935Z Respiratory Ventilation, Less than 24 Consecutive Hours (ICD-10-PCS; 2021-03-03)
PROC: 0BH18EZ Insertion of Endotracheal Airway into Trachea, Via Natural or Artificial Opening Endoscopic (ICD-10-PCS; 2021-03-03)
DX: G93.1 Anoxic brain damage, not elsewhere classified (principal); N18.6 End stage renal disease; I31.3 Pericardial effusion (noninflammatory); E87.1 Hypo-osmolality and hyponatremia; I42.9 Cardiomyopathy, unspecified; R18.8 Other ascites; I46.9 Cardiac arrest, cause unspecified; K72.90 Hepatic failure, unspecified without coma; E11.22 Type 2 diabetes mellitus with diabetic chronic kidney disease; I25.10 Atherosclerotic heart disease of native coronary artery without angina pectoris; I95.89 Other hypotension; K21.9 Gastro-esophageal reflux disease without esophagitis; E78.5 Hyperlipidemia, unspecified; E77.8 Other disorders of glycoprotein metabolism; E88.09 Other disorders of plasma-protein metabolism, not elsewhere classified; I11.0 Hypertensive heart disease with heart failure; I44.0 Atrioventricular block, first degree; E11.42 Type 2 diabetes mellitus with diabetic polyneuropathy; E03.9 Hypothyroidism, unspecified; E11.21 Type 2 diabetes mellitus with diabetic nephropathy; I48.0 Paroxysmal atrial fibrillation; Z66 Do not resuscitate; I50.9 Heart failure, unspecified; E21.3 Hyperparathyroidism, unspecified; Z20.822 Contact with and (suspected) exposure to COVID-19; Z89.421 Acquired absence of other right toe(s); Z99.2 Dependence on renal dialysis; Z87.891 Personal history of nicotine dependence; Z88.8 Allergy status to other drugs, medicaments and biological substances
CPT/HCPCS: 36415; 36416; 36600; 70450; 71045; 71275; 80053; 82140; 82533; 82553; 82805; 83605; 83690; 83735; 83880; 84443; 84484; 85007; 85025; 85027; 85610; 85730; 86850; 86900; 86901; 93005; 93306; 94002; 94003; 94640; 94760; J0692; J1100; J1250; J1642; J1644; J2060; J2270; J3010; J3370; J7620; P9047; Q9967; U0002